=== PATIENT | male | born 1955 | race Caucasian/White ===

== ENCOUNTER 2019-05-30 06:36 | Inpatient (IN) ==
--- NOTE | 2019-05-29 19:31 | EKG Report ---
Test Performed on : 05/29/2019 6:53:26 PM Test Reason : AMS Blood Pressure : / mmHG Vent. Rate : 058 BPM Atrial Rate : 058 BPM P-R Int : 000 ms QRS Dur : 084 ms QT Int : 522 ms P-R-T Axes : 000 037 026 degrees QTc Int : 512 ms Junctional rhythm. Low voltage QRS Nonspecific ST abnormality Abnormal ECG When compared with ECG of 22-DEC-2008 09:27, Significant changes have occurred Unconfirmed Result
[2019-05-29 19:45] LABS: HEMATOCRIT 37.6 % (42.0-52.0); HEMOGLOBIN 12.7 g/dL (14.0-18.0); LYMPH# 0.27 X1000 (1.2-3.4); LYMPH% 7.4 % (20.5-51.1); MCH 27.4 PG (27-31); MCHC 33.8 g/dL (33-37); MCV 81.2 FL (81-99); MONO# 0.39 X1000 (0.11-0.59); MONO% 10.7 % (1.7-9.3); MPV 11.4 FL (7.4-10.4); NEUT# 2.99 X1000 (1.4-6.5); NEUT% 81.9 % (42.2-75.2); PLT 219 X1000 (130-400); RBC 4.63 XMIL (4.7-6.1); RDW 15.8 % (11.5-14.5); WBC 3.65 X1000 (4.8-10.8)
[2019-05-29 19:54] LABS: INR 1.35
[2019-05-29 19:55] LABS: PTT 34.4 Seconds (22.3-41.8)
[2019-05-29 20:10] LABS: ALBUMIN 3.1 g/dL (3.5-5.0); CALCIUM 8.5 mg/dL (8.8-10.2); CREATININE 2.3 mg/dL (0.7-1.2); MAGNESIUM 2.3 mg/dL (1.5-2.7); TOTAL BILIRUBIN 0.75 mg/dL (0.20-1.00); TOTAL PROTEIN 6.3 g/dL (6.3-8.3)
--- NOTE | 2019-05-29 20:26 | Diag Imaging Result Doc PS360 ---
CHEST-1 VIEW - 05/29/2019 INDICATION: SOB COMPARISON: None FINDINGS: There is cardiomegaly and pulmonary vascular congestion. There is central interstitial pulmonary edema bilaterally. No pneumothorax or large pleural effusion. IMPRESSION: Congestive heart failure. Electronically signed by Adalberto Flores 05/29/2019 8:24 PM
[2019-05-29 20:28] LABS: CK INDEX 6.5 (0.0-2.5); CK-MB 97.47 ng/mL (0.0-5.0)
--- NOTE | 2019-05-29 20:49 | Diag Imaging Result Doc PS360 ---
CT HEAD W/O CONTRAST - 05/29/2019 INDICATION: AMS COMPARISON: None FINDINGS: The ventricles and sulci are normal in size and contour. There is mild periventricular white matter chronic microvascular ischemia. No intracranial mass or hemorrhage. The skull is intact. The sinuses mastoids and middle ears are clear. IMPRESSION: No acute process. This exam was performed using automated exposure control, adjustment of mA or kV according to patient size, and/or use of iterative reconstruction technique Electronically signed by Adalberto Flores 05/29/2019 8:47 PM
--- NOTE | 2019-05-29 20:54 | Diag Imaging Result Doc PS360 ---
CT ABDOMEN/PELVIS W/O CONTRAST - 05/29/2019 INDICATION: FLANK PAIN COMPARISON: None FINDINGS: There are some hazy infiltrate in the lung bases. Heart size is borderline. There are cholecystectomy clips. Otherwise liver appears normal. No biliary dilation. There is probably some hazy edema around the pancreas. This may suggest pancreatitis. There is an IVC filter. The IVC is very small in size, likely chronically occluded. Ize, likely chronically occluded. And other collateral veins. No radiodense renal stones. No hydronephrosis or hydroureter. No bowel obstruction or inflammation. Urinary bladder and rectum are normal. There are advanced degenerative changes of the spine. No acute or suspicious bony lesion. IMPRESSION: 1. Possible pancreatitis. Please correlate clinically. 2. Patchy infiltrates in the lung bases compatible with atelectasis, pulmonary edema, or pneumonia. 3. 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 This exam was performed using automated exposure control, adjustment of mA or kV according to patient size, and/or use of iterative reconstruction technique Electronically signed by Adalberto Flores 05/29/2019 8:52 PM
[2019-05-29 21:25] LABS: ALLEN TEST YES; BE -12.1 mmoll (-3.0-3.0); BLOOD TYPE ARTERIAL; HCO3-(ACT) 15.4 mmoll (20.0-26.0); O2(CT) 16.9 mL/dL (15.0-23.0); O2HB 95.3 % (95.0-99.0); PCO2(98.6) 36 mmHg (35-45); PO2(98.6) 94 mmHg (60-100); SAMPLE BLOOD; SAO2 97.7 % (95.0-100.0); THB 12.5 g/dL (11.5-17.4); pH(98.6) 7.22 (7.35-7.45)
[2019-05-29 21:26] LABS: MODALITY CANNULA
[2019-05-29 22:12] LABS: AMYLASE 310 U/L (20-200); LIPASE 658 U/L (13-60)
--- NOTE | 2019-05-30 06:10 | HISTORY AND PHYSICAL ---
PRIMARY CARE PHYSICIAN: No known PCP. CHIEF COMPLAINT: Altered mental status. HISTORY OF PRESENTING COMPLAINT: The patient is a 78-year-old with unknown medical history, as the patient is new to our system, who presented with altered mental status. I could not get any history from the patient, as patient was alert but not oriented. History obtained from ER sign- out and from chart review. On chart review, the patient's family stated the patient fell last Saturday and went to the hospital and was discharged on Saturday. The patient has been sitting in a recliner since that time with his mental status worsening. They note that patient has been incontinent to both urine and bowel. The patient's family said they cannot really take care of the patient at home. They want him admitted to a [facility]. The patient is confused. Admits to drinking. Patient had a drink today and family not being able to take care of patient, just brought patient to the ER. In the ER, workup was done that showed multiple laboratory abnormalities and the hospitalist team was called to admit the patient. PAST MEDICAL HISTORY: None known. PAST SURGICAL HISTORY: None known. SOCIAL HISTORY: The patient report from family does take alcohol. FAMILY HISTORY: Could not be ascertained as the patient was altered and there was no family member at bedside to give a history. MEDICATIONS: Also could not be ascertained as patient did not have any medication list with him to ascertain any medication. REVIEW OF SYSTEM: Could not be ascertained as patient was altered and it could not be done given patient's altered mental status home. PHYSICAL EXAMINATION: VITALS: On presentation, blood pressure was 70/36, temperature was 95.5 Fahrenheit, pulse was 61, O2 saturation was 96%, but the time I saw the patient, the patient required 4 L of oxygen. GENERAL: He is a morbidly obese male in no acute respiratory distress on 4 L of oxygen. HEENT: Mildly dry oral mucosa. Not pale, anicteric, acyanoses. CARDIOVASCULAR: S1, S2 heard. No murmurs, rubs or gallop. RESPIRATORY: Fair air entry bilaterally. The patient has bibasilar crepitations heard. No wheeze. ABDOMEN: Obese, distended. The patient has erythematous discoloration over the abdomen extending above the umbilicus or to the perianal region, with multiple skin folds noted as well. Bowel sounds normoactive. No organomegaly could be appreciated. EXTREMITIES: Patient has 3+ bilateral pedal edema up to the knees with multiple skin folds noted. NEUROLOGY: Alert, not oriented to time, place, or person. No gross focal neurological abnormality noted. SKIN: The patient has erythematous discoloration over the anterior abdominal wall, as stated above. Also, with multiple skin folds and discoloration in between skin folds noted on the abdomen, the thigh region, and even on the chest as well below the mammary glands. LABS: WBC was 3.65, hemoglobin 12.7, hematocrit 37.6, MCV 81.2, platelets 219,000. BMP: Sodium 139, potassium 4, chloride 101, bicarb 14, anion gap 24, BUN 96, creatinine 2.3. Total bilirubin is 0.05, magnesium 2.3, AST 132, ALT 61, creatine kinase is 1495, CK-MB at 10.471, troponin T of 33, albumin 3.1, total protein 6.3, lipase 658, amylase 310, lactate was 0.5. INR is 1.35. A blood gas that was done shows a pH of 7.2, pCO2 of 36. A head CT done shows no acute intracranial process. Chest x-ray shows congestive heart failure with cardiomegaly and pulmonary vascular congestion. Central interstitial pulmonary edema bilaterally. A CT of the abdomen and pelvis shows possible pancreatitis, please correlate. Patchy infiltrates in the lung bases compatible with atelectasis, pulmonary edema or pneumonia. 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 EKG shows junctional rhythm with possible left atrial enlargement and no significant ST, T changes noted. DISCUSSION AND DECISION-MAKING: A 78-year-old with no known previous past medical history, no known previous home medication, who was brought to the ER by family because they could not take care of him. Patient recently discharged from hospital after a recent fall. The patient's mentation is worsening and family could not take care of patient and brought patient to the emergency room. In the emergency room, patient was noted to have desaturated, now requiring 4 L of oxygen. He had chest x-ray concerning for cardiomegaly and pulmonary edema. The patient is morbidly obese with multiple skin folds and erythematous discoloration, especially over the anterior abdominal wall. DIAGNOSES: 1. Congestive heart failure exacerbation, unknown type. He has no previous 2D echo known. . 2. Acute kidney injury, possibly cardiorenal. 3. High anion gap metabolic acidosis, possibly related to uremia and alcohol intake. 4. Hypotension from worsening congestive heart failure. 5. Acute encephalopathy, also likely from worsening congestive heart failure. 6. Possible pancreatitis. 7. Elevated troponin, rule out acute coronary syndrome 8. Morbid obesity 9. Anterior abdominal wall cellulitis PLAN: 1.Congestive heart failure exacerbation, no previous known 2D echo on file, but given the patient's chest x-ray is concerning for cardiomegaly and pulmonary vascular congestion, would do a proBNP to give an idea of cardiac fluid overload status. The patient is hypotensive and also diuresis is a little bit tricky. As such, we will start patient on Levophed drip and would diurese with IV Lasix 60 mg q.12 hours. Fluid restriction 1800 m. Daily weights, strict in's and out's. We will trend troponin q.6 hours x2 with EKG to rule out any acute coronary syndrome cause of heart failure. Will do a 2D echo as well to ascertain cardiac status of patient. No previous 2D echo on file, so I do not know the patient's cardiac status. 2. Troponinemia, most likely related to heart failure, may be demand ischemia. We will trend troponin q.6 hours x2 and EKG q.6 hours times x2. The patient is altered and so we are not aware if the patient is having chest pain at this time. We will monitor closely. 3. STEPHANIE, this may be cardiorenal in nature. Expect improved renal function with diuresis. We will monitor closely. 4. High anion gap metabolic acidosis. The patient has high anion gap metabolic acidosis of 24. Lactic acid is normal. Ethyl alcohol is normal. Family endorses the patient had alcohol today. We will check a blood alcohol level. Suspect this may be the cause. Also, uremia as well given worsening STEPHANIE from cardiorenal cause. Also, may be responsible for the high anion gap metabolic acidosis. Expect metabolic acidosis to improve as uremia improves with diureses; also, as alcohol is metabolized as well. The patient does not have lactic acidosis and, as such, unlikely to be the cause of metabolic acidosis. 5. Hypotension - likely due to worsening congestive heart failure, as patient is not able to have adequate cardiac contraction to maintain perfusion. Start patient on IV vasopressors, Levophed, to help improve cardiac function and this will also help with diuresis as well as for CHF. Would gradually titrate off as afterload is reduced and heart is able to contract adequately. We will need to adjust patient's home medications depending on results of 2D echo. 6. Acute encephalopathy. Family states the patient's mentation has been worsening and decided to bring patient to the ER. We expect improvement in mentation with treatment for heart failure and other possibly infectious process the patient may have. 6. Anterior abdominal wall cellulitis. The patient has severe, very large anterior abdominal erythema extending around the umbilicus area down to the perineum. Suspect patient's morbid obesity may be complicating this as well. No raised infectious markers, as WBC is normal, lactic acid is normal. We will check a CRP. I will start the patient on IV vancomycin, renally dosed, to treat cellulitis and would monitor closely. 7. Multiple skin folds with fungal infections. Will start the patient on miconazole topical to apply to the skin folds to help with fungal infection, likely Candidiasis the patient is having. 8. Possible pancreatitis. CT images suggest pancreatitis and lipase is marginally elevated. For now, the patient needs to be diuresing and that will be needed rather than any IV fluid hydration. Also, patient is not having any epigastric pain, as such pancreatitis diagnosis is suspect. Suspect we will revisit pancreatitis diagnosis when patient's mentation has improved and the patient is tolerating orally adequately. 9. DVT prophylaxis. Heparin. 10. Code status: Cannot ascertain as the patient is altered. 11. Disposition: We will admit the patient to the ICU. The patient will need at least 2 days of inpatient hospital admission and will discharge when medically stable. [facility]
[2019-05-30] MEDS ORDERED: SALINE LOCK IV FLUID XX ONE (10:03)
[2019-05-30] MEDS ORDERED: VANCOMYCIN IV PER PHARMACY MISC SCH (10:15)
[2019-05-30 11:18] LABS: ALLEN TEST YES; BE -13.6 mmoll (-3.0-3.0); BLOOD TYPE ARTERIAL; HCO3-(ACT) 14.2 mmoll (20.0-26.0); METHB 1.3 % (0.0-1.5); O2(CT) 21.5 mL/dL (15.0-23.0); O2HB 93.1 % (95.0-99.0); PCO2(98.6) 31 mmHg (35-45); PO2(98.6) 78 mmHg (60-100); SAMPLE BLOOD; SAO2 95.5 % (95.0-100.0); THB 16.4 g/dL (11.5-17.4); pH(98.6) 7.22 (7.35-7.45)
[2019-05-30 11:19] LABS: MODALITY CANNULA
[2019-05-30 11:25] LABS: BASO# 0.02 X1000 (0.0-0.2); BASO% 0.3 % (0.0-0.8); EOS# 0.02 X1000 (0.0-0.7); EOS% 0.3 % (0.0-10.0); HEMATOCRIT 39.7 % (42.0-52.0); HEMOGLOBIN 13.1 g/dL (14.0-18.0); IMM GRAN# 0.04 X1000 (0.0-0.04); IMM GRAN% 0.6 % (0.0-0.5); LYMPH# 0.47 X1000 (1.2-3.4); LYMPH% 7.5 % (20.5-51.1); MCH 27.3 PG (27-31); MCV 82.7 FL (81-99); MONO# 0.67 X1000 (0.11-0.59); MONO% 10.7 % (1.7-9.3); MPV 11.1 FL (7.4-10.4); NEUT# 5.04 X1000 (1.4-6.5); NEUT% 80.6 % (42.2-75.2); PLT 272 X1000 (130-400); RDW 16.7 % (11.5-14.5); WBC 6.26 X1000 (4.8-10.8)
[2019-05-30 11:50] LABS: ACETONE SERUM NEGATIVE (NEGATIVE)
--- NOTE | 2019-05-30 11:56 | CONSULTATION ---
DATE OF CONSULTATION: 05/30/2019 ATTENDING AND REFERRING PHYSICIAN: Hospitalist. CHIEF COMPLAINT: Morbid obesity and mental status changes. HISTORY OF PRESENT ILLNESS: This 63-year-old male was admitted with a several day history of increasing confusion. The patient is somewhat alert at present but still does not answer questions completely. He appears confused. He has morbid obesity and a Monk catheter is needed to monitor urine output. Reviewing the chart, he was admitted to [facility] in 2012. At that time, he was noted to have had prostate cancer status post radical retropubic prostatectomy in 1995 (age 40). He also had significant lower abdominal and inguinal area cellulitis. PAST MEDICAL HISTORY: Diabetes hypertension, morbid obesity, history of DVT, congestive heart failure. CURRENT MEDICATIONS: Documented on the chart. PAST SURGICAL HISTORY: Radical retropubic prostatectomy, cholecystectomy, IVC filter placement, hernia repair as a child. SOCIAL HISTORY: Alcohol use. He denies tobacco use. REVIEW OF SYSTEMS: Does not know if he is allergic to anything. He has a history of condyloma. He denies any chest pains. He did have a fall approximately 1 week ago but states he really does not remember that. PHYSICAL EXAMINATION: General: A morbidly obese, age apparent, white male, who is cooperative. HEENT: Normal for age. Lungs: With scattered rhonchi throughout. Cardiovascular: Regular rate and rhythm. Distant S1-S2. Abdomen: Markedly obese. There is a very large pannus. There does appear to be a significant amount of condyloma. There is increased erythema consistent with a cellulitis in the inner thighs, inguinal areas and underneath the large pannus. The scrotum is markedly edematous. The examiner's finger found the opening to the foreskin, and it was approximately 7 inches back to where the glans penis was palpated. When pressure was placed to expose the urethral meatus, the patient had significant pain. The left testis is palpable. The right testis is not palpable. Extremities: Markedly obese, +3 edema. Neurologic: No focal deficits. He does move his extremities. LABORATORY EVALUATION: Has a white count of 6.26, hemoglobin 13.1, hematocrit 39.7 and platelets are 272,000. His serum electrolytes yesterday had a bicarb of 14, a BUN of 96, creatinine of 2.3. His CT of the abdomen revealed possible pancreatitis but no hydronephrosis. IMPRESSION: Patient with morbid obesity and lower abdominal and inguinal area cellulitis with a very significant pannus and condyloma. PLAN: Attempt placement of Monk catheter under IV sedation to minimize his discomfort and allow his cooperation. The planned procedure, benefits versus risks, possible complications, were discussed with the patient. He may have understood but desires to proceed. cc: Seth Rajan MD
[2019-05-30 11:58] LABS: ALB/GLOB RATIO 0.5; ALBUMIN 2.3 g/dL (3.5-5.0); CALCIUM 8.1 mg/dL (8.8-10.2); CREATININE 2.4 mg/dL (0.7-1.2); TOTAL BILIRUBIN 0.63 mg/dL (0.20-1.00); TOTAL PROTEIN 7.1 g/dL (6.3-8.3)
[2019-05-30] MEDS: ZOFRAN IV PRN (12:00)
[2019-05-30 12:19] LABS: LIPASE 1006 U/L (13-60)
[2019-05-30] MEDS ORDERED: KETAMINE ONE (12:20)
[2019-05-30] MEDS ORDERED: VERSED ONE (12:20)
[2019-05-30 12:42] LABS: CK INDEX 3.8 (0.0-2.5); CK-MB 159.2 ng/mL (0.0-5.0)
[2019-05-30] MEDS ORDERED: HEPARIN SUBQ SCH (13:00)
--- NOTE | 2019-05-30 13:36 | OPERATIVE NOTE ---
PROCEDURE DATE: 05/30/2019 SURGEON: Seth Rajan MD. PREOPERATIVE DIAGNOSIS: Morbid obesity with urinary incontinence and a hidden penis. POSTOPERATIVE DIAGNOSIS: Morbid obesity with urinary incontinence and a hidden penis. PROCEDURE PERFORMED: Cystoscopic exam with difficult Monk catheterization. ANESTHESIA: Monitored anesthesia care. FINDINGS: The patient had a very large pannus with significant bilateral inguinal area, proximal thigh and lower abdominal cellulitis with a large amount of condyloma on the lower portion of the pannus and scrotum. The urethral meatus was approximately 10 to 12 cm proximal to the opening of the foreskin on the pannus. Attempts were made to push the surrounding tissue back to the glans penis without success. Cystoscopic exam. Urethra was greater than 21 -Belarusian without stricture. Prostate with normal verumontanum and mildly increased lateral lobes. Lenth about 4 cm. Elevated bladder neck. Bladder. Normal ureteral orifices bilaterally,mild trebeculations and no papillary lesions noted. Description of procedure: The patient was prepped and draped sterilely and a 21-Belarusian sheath cystoscope was passed through the foreskin back to the glans penis. The cystoscope was able to be pushed through the urethral meatus, then through the urethra, prostate and up into the bladder with findings as noted above. A 0.038 inch Leonardo-coated guidewire was passed through the cystoscope and coiled into the bladder under direct vision. The cystoscope was removed leaving the wire in place. The end of a 20-Belarusian silicone Monk catheter was removed with a catheter cutter and the 20-Belarusian silicone Monk was passed over the wire through the patient's urethra, prostate, and into the bladder. The wire was removed and 10 mL of sterile water were placed in the Monk's balloon. The Monk was placed to gravity drain. The efflux was straw colored urine. A portion of this was sent to Pathology for culture and sensitivities. He tolerated this procedure well and was returned to the intensive care unit in good condition. EBL. 0 ml. cc: Seth Rajan MD [facility]
[2019-05-30 13:39] LABS: URINE SOURCE CATH
[2019-05-30 13:46] LABS: BILIRUBIN URINE NEGATIVE (NEGATIVE); BLOOD URINE LARGE (NEGATIVE); COLOR YELLOW; GLUCOSE URINE NEGATIVE (NEGATIVE); KETONE URINE NEGATIVE (NEGATIVE); LEUKOCYTES URINE NEGATIVE (NEGATIVE); NITRITE URINE NEGATIVE (NEGATIVE); PROTEIN URINE TRACE mg/dL (NEGATIVE); SP GRAVITY URINE 1.007; TURBIDITY URINE HAZY (CLEAR); UROBILINOGEN URINE NORMAL (NORMAL)
[2019-05-30 13:47] LABS: UR EPITHELIAL CELLS <10 /HPF (<10); URINE BACTERIA NEGATIVE /HPF; URINE RBC TNTC /HPF (<10); URINE WBC <10 /HPF (<10)
[2019-05-30] MEDS: HUMULIN R SUBQ SCH ×3 (13:53→21:48)
[2019-05-30] MEDS: LOVENOX SUBQ SCH (13:53)
[2019-05-30] MEDS: MERREM 500 MG in NS 50 ML IV SCH ×2 (13:53→20:00)
[2019-05-30] MEDS: ZYVOX 600 MG/D5W 600 MG/300 ML IVPB IV SCH ×2 (13:53→22:06)
[2019-05-30] MEDS: LEVOPHED 8 MG in D5 1/2 NS 250 ML IV SCH (13:54)
[2019-05-30 13:59] LABS: UR CREAT RANDOM 15.4 mg/dL (14-26); UR PROT RANDOM 13.6 mg/dL
[2019-05-30] MEDS ORDERED: NS 1,000 ML IV SCH (14:15)
--- NOTE | 2019-05-30 14:29 | CARDIOLOGY CONSULTATION ---
DATE: 05/30/2019 CHIEF COMPLAINT ON PRESENTATION: Altered mental status. HISTORY OF PRESENT ILLNESS: Limited history available from the patient. He was just brought back from the operating room for a sedation-assisted Monk catheter placement. Patient was brought in yesterday by family with altered mental status and inability to take care of him. He is not able to provide much history but it seems like he is quite confused. Admits to alcohol intake daily and possibly the patient has been experiencing falls as well as prolonged time periods of sitting in a recliner. He is still quite confused from sedation. He has no acute complaints. PAST MEDICAL HISTORY: Essentially unknown as we have very limited available reports. We have a report from 2012 when he was admitted reporting that he had a prostatectomy as well as a cholecystectomy. He is a morbidly obese patient. FAMILY HISTORY, SOCIAL HISTORY, REVIEW OF SYSTEMS: All unable to be obtained secondary to lack of history and the patient's confusion. PHYSICAL EXAMINATION: He is afebrile. His presenting temperature was 85.5, his most recent temperature was 96.General: He is a disheveled white male in no acute distress. Currently on supplemental O2. HEENT: Oropharynx is moist. Poor dentition. Mangum conjunctivae. White sclerae. Neck: Shows no obvious thyromegaly or thyroid tenderness. Cardiovascular: He is in a regular rate and rhythm. He has no obvious murmurs. He has no S3. He has no lower extremity edema. Chest: Sounds relatively clear but he has poor inspiratory effort. He has no increased work of breathing. Abdomen: Soft, nontender, nondistended. Skin: Shows multiple areas of cellulitis in the pannus on his bilateral abdomen. Neurological: He is moving all extremities well. He is not able to cooperate with the examination. PERTINENT DATA: His abdominal CT demonstrates possible pancreatitis, patchy infiltrates in the lung bases compatible with possible atelectasis, pulmonary edema or pneumonia. Probable occlusion of the IVC with previous IVC filter placement. He had an electrocardiogram performed on the . This demonstrated sinus rhythm. LABORATORY DATA: Presenting white count was 3.6, hematocrit 39.7, platelet count 272,000. ABG shows a pH 7.22, pCO2 of 31, PO2 of 78. His lactate is 1.3. His sodium is 138, potassium 4, his BUN is 92, creatinine is 2.4. His proBNP is 2623, his AST and ALT are 189 and 71 respectively, his CK is 4140, this is increased from 1495. His initial troponin was 33, subsequent has trended up to 55, his MB fractions are 97 and subsequently 159, his index was 6.5 and subsequently reduced to 3.8. His CRP is 184. His lipase initially was 658 and subsequently was 1006 with an elevated amylase as well. Serum alcohol was negative. Acetone level negative. ASSESSMENT: Mr. Trevino is a 63-year-old gentleman who presented with altered mental status. PLAN: He has multiple lab abnormalities suggesting acute renal failure as well as possible pancreatitis. His CRP is markedly elevated. His troponin elevation is likely not secondary to acute coronary syndrome based on his lack of complaints of chest pain as well as a normal EKG. I believe his proBNP elevation can be explained by sepsis as well as acute kidney injury in the likelihood that the patient has sleep apnea as well that is untreated. Presently, we will order an echocardiogram for tomorrow. Presently, I do not have any acute cardiovascular recommendations. I discussed case with the primary treating physician and I believe a trial of light fluids would be reasonable. Currently he is on Lasix 60 IV b.i.d. Again, I would not treat this as acute heart failure. cc: Viriglio Ríos MD
[2019-05-30] MEDS: DUONEB (A & A) INH SCH ×4 (14:58→23:26)
[2019-05-30] MEDS ORDERED: LASIX IV SCH (15:00)
[2019-05-30] MEDS ORDERED: SODIUM BICARBONATE 8.4% 150 MEQ in D5W 1,000 ML IV SCH (16:45)
[2019-05-30] MEDS ORDERED: NS 0 ML ONE (17:02)
[2019-05-30] MEDS: SODIUM BICARBONATE 8.4% 150 MEQ in D5W 1,000 ML IV SCH (17:15)
[2019-05-30 19:07] LABS: ALBUMIN 2.3 g/dL (3.5-5.0); CALCIUM 7.9 mg/dL (8.8-10.2); CREATININE 2.2 mg/dL (0.7-1.2); PHOSPHORUS 5.8 mg/dL (2.7-4.5); POTASSIUM 4.2 mmol/L (3.5-5.1)
[2019-05-30 19:38] LABS: CK INDEX 3.9 (0.0-2.5); CK-MB 142.1 ng/mL (0.0-5.0)
--- NOTE | 2019-05-30 19:54 | Diag Imaging Result Doc PS360 ---
US SCROTUM - 05/30/2019 INDICATION: swelling TECHNIQUE: COMPARISON: CT from 05/29/2019 FINDINGS: The exam is extremely, extremely challenging due to the patient's large size. The testes are grossly normal in echotexture with normal blood flow. No mass or fluid collection. IMPRESSION: Negative exam. Electronically signed by Adalberto Flores 05/30/2019 7:51 PM
--- NOTE | 2019-05-30 20:01 | EKG Report ---
Test Performed on : 05/30/2019 5:39:25 PM Test Reason : EKG Blood Pressure : / mmHG Vent. Rate : 076 BPM Atrial Rate : 076 BPM P-R Int : 188 ms QRS Dur : 106 ms QT Int : 466 ms P-R-T Axes : 052 015 113 degrees QTc Int : 524 ms Normal sinus rhythm. T wave abnormality, consider lateral ischemia Prolonged QT Abnormal ECG When compared with ECG of 11-MAY-2012 08:35, T wave inversion now evident in Lateral leads QT has lengthened Confirmed by Miguel FRAGA, mOi Barba ([id number]) on 06/02/2019 9:39:30 AM
[2019-05-30] MEDS: BAZA ANTIFUNGAL CREAM TOP SCH (21:44)
[2019-05-31] MEDS: LEVOPHED 8 MG in D5 1/2 NS 250 ML IV SCH ×2 (00:30→08:09)
[2019-05-31] MEDS: MERREM 500 MG in NS 50 ML IV SCH ×3 (02:44→17:33)
[2019-05-31 05:05] LABS: ALLEN TEST YES; BE -7.7 mmoll (-3.0-3.0); BLOOD TYPE ARTERIAL; HCO3-(ACT) 18.9 mmoll (20.0-26.0); METHB 1.4 % (0.0-1.5); O2(CT) 17.9 mL/dL (15.0-23.0); O2HB 96.5 % (95.0-99.0); PCO2(98.6) 34 mmHg (35-45); PO2(98.6) 156 mmHg (60-100); SAMPLE BLOOD; SAO2 98.9 % (95.0-100.0); pH(98.6) 7.32 (7.35-7.45)
[2019-05-31 05:06] LABS: MODALITY VENTIMASK
[2019-05-31 05:20] LABS: EOS# 0.02 X1000 (0.0-0.7); EOS% 0.3 % (0.0-10.0); HEMATOCRIT 36.5 % (42.0-52.0); HEMOGLOBIN 12.1 g/dL (14.0-18.0); IMM GRAN# 0.03 X1000 (0.0-0.04); IMM GRAN% 0.5 % (0.0-0.5); LYMPH# 0.73 X1000 (1.2-3.4); LYMPH% 11.6 % (20.5-51.1); MCH 27.4 PG (27-31); MCHC 33.2 g/dL (33-37); MCV 82.8 FL (81-99); MONO% 9.5 % (1.7-9.3); MPV 11.5 FL (7.4-10.4); NEUT# 4.94 X1000 (1.4-6.5); NEUT% 78.1 % (42.2-75.2); PLT 266 X1000 (130-400); RBC 4.41 XMIL (4.7-6.1); RDW 16.8 % (11.5-14.5); WBC 6.32 X1000 (4.8-10.8)
[2019-05-31 05:42] LABS: ALB/GLOB RATIO 0.7; ALBUMIN 2.6 g/dL (3.5-5.0); CALCIUM 7.8 mg/dL (8.8-10.2); CREATININE 2.2 mg/dL (0.7-1.2); MAGNESIUM 1.8 mg/dL (1.5-2.7); POTASSIUM 3.7 mmol/L (3.5-5.1); TOTAL BILIRUBIN 0.56 mg/dL (0.20-1.00); TOTAL PROTEIN 6.5 g/dL (6.3-8.3)
[2019-05-31 05:44] LABS: HEMOGLOBIN A1C 6.2 % (4.8-6.0)
[2019-05-31] MEDS: HUMULIN R SUBQ SCH ×4 (06:08→21:40)
[2019-05-31] MEDS: PROTONIX IV SCH (06:11)
[2019-05-31 06:13] LABS: CK-MB 103.3 ng/mL (0.0-5.0)
[2019-05-31] MEDS: SODIUM BICARBONATE 8.4% 150 MEQ in D5W 1,000 ML IV SCH ×2 (07:50→23:26)
[2019-05-31] MEDS: DUONEB (A & A) INH SCH ×5 (08:38→23:22)
[2019-05-31] MEDS: MIRALAX PO SCH ×2 (08:45→20:53)
[2019-05-31] MEDS: BAZA ANTIFUNGAL CREAM TOP SCH ×2 (08:45→20:53)
[2019-05-31] MEDS: VITAMIN D PO SCH (08:45)
[2019-05-31] MEDS: ZYVOX 600 MG/D5W 600 MG/300 ML IVPB IV SCH ×2 (09:32→23:25)
[2019-05-31] MEDS: LOVENOX SUBQ SCH (09:32)
--- NOTE | 2019-05-31 10:01 | EKG Report ---
Test Performed on : 05/31/2019 09:34:44 AM Test Reason : chest pain Blood Pressure : / mmHG Vent. Rate : 091 BPM Atrial Rate : 091 BPM P-R Int : 174 ms QRS Dur : 098 ms QT Int : 430 ms P-R-T Axes : 044 010 023 degrees QTc Int : 528 ms Normal sinus rhythm. Nonspecific T wave abnormality Prolonged QT Abnormal ECG When compared with ECG of 30-MAY-2019 17:39, (Unconfirmed) Nonspecific T wave abnormality now evident in Inferior leads Nonspecific T wave abnormality, worse in Anterior leads T wave inversion no longer evident in Lateral leads Unconfirmed Result
--- NOTE | 2019-05-31 11:46 | CARDIOLOGY PROGRESS NOTE ---
DATE: 05/31/2019 SUBJECTIVE: Mr. Trevino seems a little bit more alert today. No complaints. PHYSICAL EXAMINATION: Vital signs: Afebrile. Heart rates in the 80s to 90s. Blood pressure 86/62. His I's and O's are slightly positive. Notably, he was on Lasix yesterday. General: Generally he is an ill-appearing, disheveled white male no acute distress. Cardiovascular: He is in a regular rate and rhythm. Currently telemetry tracing shows sinus rhythm. He has minimal lower extremity edema. Chest: Coarse breath sounds diffusely. No increased work of breathing. Expiratory wheezes noted throughout. Abdomen: Soft, nontender. He has a extremely large pannus that extends down close to the level of his knees. LABORATORY: White count 6.3, hematocrit 36, platelet count 266,000. His sodium is 135, potassium 3.7, BUN 85, creatinine 2.2 which is roughly stable from yesterday. His CK is down to 2590, index is roughly stable at 4. MB 103, which is improved. Troponin 44, which is roughly stable. ProBNP 4204, slightly increased. TSH 0.12. ASSESSMENT: Mr. Trevino is a 63-year-old gentleman who presented with altered mental status. PLAN: Again, laboratories on presentation demonstrated acute renal failure, markedly elevated lipase as well as a markedly elevated CRP. His EKGs have not been consistent with acute coronary syndrome. His echocardiogram is pending. I would continue with light hydration which currently is being accomplished with sodium bicarb at 75 mL/hour. He is currently on antibiotics. He certainly seems septic and he has multiple skin wounds on a very prominent pannus that could account for that. He had a head CT, and chest CT that are pending. cc: Virgilio Ríos MD [facility] SYSTEM[facility]a
--- NOTE | 2019-05-31 15:09 | Diag Imaging Result Doc PS360 ---
CT HEAD W/O CONTRAST - 05/31/2019 INDICATION: encephalopathy COMPARISON: 05/29/2019 FINDINGS: There is no acute disease or change from prior. IMPRESSION: No acute disease or change from prior. This exam was performed using automated exposure control, adjustment of mA or kV according to patient size, and/or use of iterative reconstruction technique Electronically signed by Adalberto Flores 05/31/2019 3:07 PM
--- NOTE | 2019-05-31 15:15 | Diag Imaging Result Doc PS360 ---
CT THORAX W/O CONTRAST - 05/31/2019 INDICATION: pneumonia COMPARISON: Chest x-ray 05/29/2019 FINDINGS: Lung volumes are severely low. There is some mild nonspecific atelectasis bilaterally. There is no adenopathy. Heart and great vessels are normal. Bones are intact. IMPRESSION: Severely low lung volumes with bibasilar atelectasis. This suggests obesity hypoventilation. This exam was performed using automated exposure control, adjustment of mA or kV according to patient size, and/or use of iterative reconstruction technique Electronically signed by Adalberto Flores 05/31/2019 3:13 PM
--- NOTE | 2019-05-31 18:19 | PROGRESS NOTE ---
DATE: 05/31/2019 SUBJECTIVE: The patient is resting comfortably in bed. He is on a Levophed drip. No acute events noted overnight. OBJECTIVE: Vital Signs: Temperature 97 degrees, blood pressure 86/62, heart rate 90, respirations 19, O2 saturation 96% on a Venturi mask. Intake 2.1 L, output 2 L. General: This is a morbidly obese male lying in bed in no acute distress. HEENT: Normocephalic, atraumatic. Oral mucosa is moist. Trachea is midline. Heart: S1, S2 normal. Regular rate and rhythm. Lungs: Coarse breath sounds bilaterally. Abdomen: Positive bowel sounds. There is erythema over the pannus. It is warm to touch. Mild tenderness to palpation. Extremities: 2+ edema with erythema involving the upper thighs . : The scrotum is severely edematous and erythematous. Neurologic: The patient is alert and oriented x3. He is able to move all 4 extremities. LABS: White blood cell count 6.3, hemoglobin 12, hematocrit 36, platelets 266,000. Sodium 135, potassium 3.7, chloride 100, CO2 19, BUN 85, creatinine 2.2, glucose 22, anion gap of 16. ABG, pH of 7.32, pCO2 34, PO2 156, bicarb 18, phosphorus 5, magnesium 1.8. AST 144, ALT 64, CK 2590. Abdomen wound culture is showing grown gram-negative rods. Head CT: No acute disease. Chest CT reveals basilar atelectasis and obesity related hypoventilation. ASSESSMENT AND PLAN: 1. Acute hypoxemic respiratory failure. Multifactorial. Continue with supplemental oxygen and bronchodilator therapy. 2. Septic shock. The patient has a panniculitis as well as cellulitis involving the legs. We will continue with broad-spectrum antibiotics. The wound culture from the abdomen is growing gram-negative rods. Continue with broad-spectrum antibiotics. 3. Acute kidney injury. The fractional excretion of urea is 23.5%. The patient's renal failure is likely multifactorial. Likely a combination of sepsis and rhabdomyolysis leading to acute tubular necrosis. We will continue with IV fluids and consult with the physician gynecologist for further recommendations. We will avoid nephrotoxic agents. 4. Rhabdomyolysis. Continue on the bicarbonate drip. 5. Abdominal wall cellulitis. The wound culture is growing gram-negative rods. Continue on meropenem pending final culture results. 6. Bilateral lower extremity cellulitis. Continue with antibiotics. 7. History of inferior vena cava filter placement. Venous Dopplers of both legs have been ordered. The patient is on full-dose Lovenox. 8. Morbid obesity with hypoventilation. Aware. 9. High anion gap metabolic acidosis. The patient is currently on a bicarbonate drip and this appears to be improving slowly. 10. Diabetes mellitus type 2. Continue on sliding scale insulin. 11. Constipation. Continue with laxative therapy. 12. Gastrointestinal prophylaxis. Continue on Protonix. 13. DVT prophylaxis. Continue on lovenox. 14. Disposition. The patient is critically ill. cc: Shanice Villarreal MD MTDMya
[2019-05-31] MEDS: CULTURELLE PO SCH (20:53)
--- NOTE | 2019-05-31 23:40 | EKG Report ---
Test Performed on : 05/31/2019 5:17:10 PM Test Reason : EKG Blood Pressure : / mmHG Vent. Rate : 095 BPM Atrial Rate : 095 BPM P-R Int : 178 ms QRS Dur : 098 ms QT Int : 394 ms P-R-T Axes : 047 009 017 degrees QTc Int : 495 ms Normal sinus rhythm. Nonspecific T wave abnormality Prolonged QT Abnormal ECG When compared with ECG of 31-MAY-2019 09:34, (Unconfirmed) No significant change was found Unconfirmed Result
[2019-06-01] MEDS: MERREM 500 MG in NS 50 ML IV SCH (05:03)
[2019-06-01 05:07] LABS: ALLEN TEST YES; BE -0.5 mmoll (-3.0-3.0); BLOOD TYPE ARTERIAL; HCO3-(ACT) 24.5 mmoll (20.0-26.0); O2(CT) 15.9 mL/dL (15.0-23.0); PCO2(98.6) 43 mmHg (35-45); PO2(98.6) 160 mmHg (60-100); SAMPLE BLOOD; SAO2 99.3 % (95.0-100.0); THB 11.4 g/dL (11.5-17.4); pH(98.6) 7.37 (7.35-7.45)
[2019-06-01 05:08] LABS: MODALITY CANNULA
[2019-06-01 05:52] LABS: EOS# 0.05 X1000 (0.0-0.7); EOS% 1.2 % (0.0-10.0); HEMATOCRIT 32.8 % (42.0-52.0); HEMOGLOBIN 10.6 g/dL (14.0-18.0); LYMPH# 0.89 X1000 (1.2-3.4); LYMPH% 20.5 % (20.5-51.1); MCH 27.2 PG (27-31); MCHC 32.3 g/dL (33-37); MCV 84.3 FL (81-99); MONO% 13.8 % (1.7-9.3); MPV 11.3 FL (7.4-10.4); NEUT% 64.5 % (42.2-75.2); PLT 187 X1000 (130-400); RBC 3.89 XMIL (4.7-6.1); RDW 16.8 % (11.5-14.5); WBC 4.34 X1000 (4.8-10.8)
[2019-06-01 06:12] LABS: ALB/GLOB RATIO 0.5; ALBUMIN 2.2 g/dL (3.5-5.0); CALCIUM 7.1 mg/dL (8.8-10.2); CREATININE 2.5 mg/dL (0.7-1.2); DIRECT BILIRUBIN 0.2 mg/dL (0.00-0.20); PHOSPHORUS 4.4 mg/dL (2.7-4.5); POTASSIUM 4.2 mmol/L (3.5-5.1); TOTAL BILIRUBIN 0.4 mg/dL (0.20-1.00); TOTAL PROTEIN 6.4 g/dL (6.3-8.3)
[2019-06-01] MEDS: SODIUM CHLORIDE 0.9% INJ SCH (06:44)
[2019-06-01] MEDS: PROTONIX IV SCH (06:44)
[2019-06-01] MEDS: HUMULIN R SUBQ SCH ×4 (06:52→21:19)
--- NOTE | 2019-06-01 07:16 | Diag Imaging Result Doc PS360 ---
EXAM: CHEST-PORTABLE 06/01/2019 HISTORY: dyspnea TECHNIQUE: AP portable at 0600 COMMENT: There is cardiomegaly and increased pulmonary vascularity. There are platelike opacities in the right base which were not present on 05/29/2019. The inspiration is less optimal. There is also subsegmental atelectasis in the retrocardiac left lower lobe. IMPRESSION: Bibasilar atelectasis. Cardiomegaly. The possibility of mild pulmonary edema cannot be excluded. Electronically signed by Jose Vanegas 06/01/2019 7:14 AM
[2019-06-01] MEDS: COLACE PO SCH ×2 (08:53→20:22)
[2019-06-01] MEDS: CULTURELLE PO SCH ×2 (08:53→20:22)
[2019-06-01] MEDS: MIRALAX PO SCH ×2 (08:53→20:22)
[2019-06-01] MEDS: NS 1,000 ML IV SCH ×2 (09:00→21:51)
[2019-06-01] MEDS: BAZA ANTIFUNGAL CREAM TOP SCH ×2 (09:00→20:22)
[2019-06-01] MEDS: DUONEB (A & A) INH SCH ×5 (09:57→23:34)
[2019-06-01] MEDS: ZYVOX 600 MG/D5W 600 MG/300 ML IVPB IV SCH ×2 (11:00→21:51)
[2019-06-01] MEDS: LOVENOX SUBQ SCH (11:00)
--- NOTE | 2019-06-01 12:42 | CARDIOLOGY PROGRESS NOTE ---
DATE: 06/01/2019 SUBJECTIVE: Mr. Trevino has no complaints today. He has no pain complaints in his chest, abdomen, or legs. OBJECTIVE: Vital Signs: On physical exam, he is afebrile. His heart rates are in the 80s, blood pressure 93/57. He has had some systolics in the 70s to 90s. General: Morbidly obese, no acute distress. Cardiovascular: He is in a regular rate and rhythm. He has no obvious murmurs. He has warm and well perfused extremities with no edema. Chest: His chest exam is relatively clear, but he has a very poor inspiratory effort. Difficult examination secondary to his obesity. Abdomen: Soft, nontender. He has a very large pannus. DATA: White count 4.3, hematocrit 32, platelet count 187,000. His sodium is 139, potassium 4.2, BUN 89, creatinine 2.5. Yesterday his creatinine was 2.2. CK 1552, which is down from a peak of 4140. ASSESSMENT: Mr. Trevino is a 63-year-old gentleman who presented with sepsis likely secondary to skin infection. PLAN: His echocardiogram today shows a normal ejection fraction, suggestion of grade 2 diastolic dysfunction, pulmonary hypertension with a dilated right ventricle. He likely has untreated sleep apnea, possibly also COPD. His chest CT shows severely low lung volumes suggesting obesity hypoventilation. Head CT was unremarkable. At present, I do not have any acute cardiovascular recommendations. His telemetry strips were reviewed and demonstrated no significant arrhythmias. cc: Virgilio Ríos MD
--- NOTE | 2019-06-01 13:10 | ECHO REPORT ---
ORDER DATE: 06/01/2019 INTERPRETING PHYSICIAN: Dr. Benjamin Veronica. ECHOCARDIOGRAPHIC MEASUREMENTS: 1. Interventricular septum: 0.9 cm. 2. Left ventricular posterior wall: 0.9 cm. 3. Diastolic diameter: 5.7 cm. 4. Left atrium: 3.9 cm. 5. Aorta: 2.8 cm. SUMMARY OF THE 2-DIMENSIONAL IMAGIN. Normal left ventricular cavity size. Estimated ejection fraction of 60%. There is diastolic dysfunction grade 2. 2. Aortic valve leaflets were sclerosed, trileaflet. 3. Mitral valve was normal. 4. Tricuspid valve was normal. 5. Right ventricle was mildly dilated, D-shaped, interventricular septum suggestive of elevated right-sided pressures. 6. The peak velocity across the aortic valve was 2.5 m/sec with a mean gradient of 16 mmHg. There is aortic sclerosis. No aortic stenosis. 7. There is moderate to severe tricuspid regurgitation. Peak velocity across the tricuspid valve was 3.4 m/sec. 8. Pulmonary artery systolic pressure of 56 mmHg. There is pulmonary arterial hypertension. 9. There is mild mitral regurgitation. 10. There is no pericardial effusion. cc: Benjamin Veronica MD
--- NOTE | 2019-06-01 18:08 | PROGRESS NOTE ---
DATE: 06/01/2019 SUBJECTIVE: The patient is resting comfortably in bed. No acute events noted overnight. The patient is off of the Levophed drip. OBJECTIVE: Vital Signs: Temperature 98 degrees, blood pressure 104/55, heart rate 80, respirations 16, O2 saturation 96% on 6 L nasal cannula. Intake 3.4 L, output 9.85. General: This is a morbidly obese male lying in bed in no acute distress. Heart: S1, S2 normal. Regular rate and rhythm. Lungs: Coarse breath sounds bilaterally. Abdomen: Positive bowel sounds, soft. There is erythema involving the abdominal wall extending to the pannus. : The scrotum is severely edematous. Extremities: 2+edema with erythema involving both upper thighs. Neurologic: The patient is alert and oriented to person. LABS: White blood cell count 4.3, hemoglobin 10, hematocrit 32, platelets 187,000. Sodium 139, potassium 4.2, chloride 99, CO2 23. BUN 89, creatinine 2.5, glucose 148, calcium 7.1. Phosphorus 4.4, AST 105, ALT 51, CK 1552, cortisol 18.4. IMAGING: Chest x-ray: Bibasilar atelectasis, cardiomegaly, mild pulmonary edema. ASSESSMENT AND PLAN: 1. Acute hypoxemic respiratory failure. The x-ray is not showing any evidence of pneumonia. We will continue with supplemental oxygen and bronchodilator therapy. 2. Septic shock. The patient is off of the Levophed drip. The abdominal wound culture is growing Escherichia coli. Continue with antibiotic therapy. So far, the blood cultures remain negative. 3. Acute kidney injury on CKD. This is worse today. We will discontinue the bicarbonate drip and start the patient on normal saline. This is likely a combination of sepsis and rhabdomyolysis leading to acute tubular necrosis. Nephrology has been consulted for further recommendations. 4. Rhabdomyolysis. Slowly improving. Continue with IV fluids. 5. Abdominal wall cellulitis secondary to Escherichia coli. Continue with IV antibiotic therapy. 6. Bilateral lower extremity cellulitis. Continue with antibiotics. 7. History of inferior vena cava (IVC) filter placement. The patient refused to have a venous Doppler of his lower extremities done. 8. Morbid obesity with hypoventilation syndrome. Aware. 9. Anion gap metabolic acidosis. Improved. 10. Diabetes mellitus type 2. Continue on sliding scale insulin. 11. Constipation. Continue with laxative therapy. 12. Transaminitis. Will check a hepatitis profile. 13. Morbid obesity with suspected Pickwickian syndrome. The patient will need a sleep study as outpatient. 14. Acute pancreatitis. The patient denies abdominal pain or nausea. Continue with IVF and monitor closely. 15. Gastrointestinal prophylaxis. Continue on Protonix. 16. Deep vein thrombosis prophylaxis. The patient is on full-dose Lovenox. 17. Disposition. The patient remains critically ill. cc: Shanice Villarreal MD MTDD
--- NOTE | 2019-06-01 18:17 | NEPHROLOGY CONSULTATION ---
DATE: 06/01/2019 REASON FOR CONSULTATION: Abnormal kidney function. HISTORY OF PRESENT ILLNESS: Mr. Trevino is a 78-year-old man who was brought to the emergency room because his family could no longer care for him. He recently was hospitalized and after going home he had worsening mental state and difficulty with controlling bowels and bladder and ultimately again they could not care for him and so he was brought back to the emergency room. His initial evaluation in the emergency room found blood pressure of 115/65, but he rapidly dropped to 79/50. He has had intermittent hypotension going forward from that time and required vasopressor support in the form of Levophed. His blood pressure has remained unstable with blood pressures as low as 71/52 this morning. The patient opens his eyes and grunts but he does not answer any of my questions. He will look toward me but he does not follow any other commands. PAST MEDICAL HISTORY, MEDICATIONS, FAMILY AND SOCIAL HISTORY, AND REVIEW OF SYSTEMS: Otherwise not obtainable. PHYSICAL EXAMINATION: Vital Signs: Blood pressure 105/55, heart rate 80, respirations 16, afebrile. Generally: He is a morbidly obese, white male lying on his back. Mental status as above. HEENT: Conjunctivae are pink. Pupils are equal. Oropharynx is clear. Neck: Neck veins are not appreciated. Trachea is midline. Heart: PMI difficult to palpate. Regular rate and rhythm. No audible murmurs or rubs. Lungs: Have equal excursion. Decreased breath sounds markedly so. Difficult to hear any respiratory sounds, but no crackles. Abdomen: Obese, soft, nontender. Bowel sounds are diminished. He has intertriginous erythema and desquamation. IMPRESSION: Renal failure. Creatinine 2.5 today. Creatinine has been stable since admission. We do not have previous data. He certainly has had hypotension and Levophed, which would predispose him to acute kidney injury. But again, kidney function changes predate the addition of Levophed. CT did not demonstrate any evidence of obstruction. May well be chronic. Urine electrolytes with really minimal protein and urine FENa is not low. I have reviewed his medications. No changes are required at this time. We will follow with you. cc: Vaibhav Judd MD
[2019-06-01] MEDS: MERREM 1 GM in NS 50 ML IV SCH (18:22)
--- NOTE | 2019-06-01 18:34 | Diag Imaging Result Doc PS360 ---
EXAM: ABDOMEN FLAT/UPRIGHT 06/01/2019 HISTORY: constipation TECHNIQUE: Flat and upright abdomen portable COMMENT: There is a Cortez filter and multiple surgical clips in the right upper quadrant. There is some gas in the stomach. There is gas and some nondistended small bowel loops and the transverse colon as well as some gas in the rectosigmoid with fecal debris. There is no evidence of organomegaly or mass. IMPRESSION: Mild constipation otherwise nonspecific abdomen. Electronically signed by Jose Vanegas 06/01/2019 6:32 PM
[2019-06-01] MEDS: DULCOLAX PR SCH (20:22)
[2019-06-02] MEDS: MERREM 1 GM in NS 50 ML IV SCH (04:24)
[2019-06-02 04:35] LABS: BASO# 0.01 X1000 (0.0-0.2); BASO% 0.2 % (0.0-0.8); EOS# 0.05 X1000 (0.0-0.7); EOS% 1.2 % (0.0-10.0); HEMATOCRIT 32.3 % (42.0-52.0); HEMOGLOBIN 10.2 g/dL (14.0-18.0); IMM GRAN# 0.02 X1000 (0.0-0.04); IMM GRAN% 0.5 % (0.0-0.5); LYMPH# 0.86 X1000 (1.2-3.4); LYMPH% 21.4 % (20.5-51.1); MCH 27.1 PG (27-31); MCHC 31.6 g/dL (33-37); MCV 85.9 FL (81-99); MONO# 0.37 X1000 (0.11-0.59); MONO% 9.2 % (1.7-9.3); MPV 10.6 FL (7.4-10.4); NEUT% 67.5 % (42.2-75.2); PLT 173 X1000 (130-400); RBC 3.76 XMIL (4.7-6.1); RDW 16.9 % (11.5-14.5); WBC 4.01 X1000 (4.8-10.8)
[2019-06-02 04:50] LABS: ALLEN TEST YES; BE -0.3 mmoll (-3.0-3.0); BLOOD TYPE ARTERIAL; HCO3-(ACT) 24.7 mmoll (20.0-26.0); O2(CT) 11.4 mL/dL (15.0-23.0); O2HB 96.6 % (95.0-99.0); PCO2(98.6) 49 mmHg (35-45); PO2(98.6) 119 mmHg (60-100); SAMPLE BLOOD; SAO2 98.8 % (95.0-100.0); THB 8.2 g/dL (11.5-17.4); pH(98.6) 7.33 (7.35-7.45)
[2019-06-02 04:53] LABS: MODALITY CANNULA
[2019-06-02 05:01] LABS: ALBUMIN 2.3 g/dL (3.5-5.0); CALCIUM 7.1 mg/dL (8.8-10.2); CREATININE 1.9 mg/dL (0.7-1.2); PHOSPHORUS 4.5 mg/dL (2.7-4.5); POTASSIUM 4.4 mmol/L (3.5-5.1)
[2019-06-02] MEDS: PROTONIX IV SCH (06:19)
[2019-06-02] MEDS: HUMULIN R SUBQ SCH ×4 (06:19→20:37)
[2019-06-02] MEDS: SODIUM CHLORIDE 0.9% INJ SCH (06:19)
--- NOTE | 2019-06-02 07:22 | Diag Imaging Result Doc PS360 ---
CHEST-PORTABLE - 06/02/2019 INDICATION: dyspnea COMPARISON: 06/01/2019 FINDINGS: Stable low lung volumes. Stable cardiomegaly and pulmonary vascular congestion. There has been improvement in the central hazy interstitial pulmonary edema. There is also been improvement in the patchy atelectasis in both lung bases. IMPRESSION: Improvement from prior. Electronically signed by Adalberto Flores 06/02/2019 7:20 AM
[2019-06-02] MEDS: KEFZOL 1 GM/D5W 1 GM/50 ML IVPB IV SCH ×2 (08:00→16:35)
[2019-06-02] MEDS: DUONEB (A & A) INH SCH ×4 (08:12→20:01)
--- NOTE | 2019-06-02 08:22 | PROGRESS NOTE ---
DATE: 06/02/2019 INTERVAL HISTORY: His hypothermia has been improving and his temperature has been 97.2. He did not have any other acute overnight events except a few episodes of hypotension, though his mean arterial pressure mostly has been within acceptable range. SUBJECTIVE: Mr. Trevino is awake, alert. He answers simple question. He denies any chest pain. He is feeling short of breath, but he is feeling better, however, his history has been inconsistent. REVIEW OF SYSTEMS: Negative for nausea, vomiting. Positive for cough. I could not obtain very reliable history, though he was following intermittent commands. OBJECTIVE: VITAL SIGNS: Temperature of 97.2 degrees, pulse 85, respiratory rate 15, blood pressure 104/67. He is saturating 99%. I turned his oxygen down to 4 L and he was still saturating 94%. PHYSICAL EXAMINATION: General: Morbidly obese, appears tachypneic and in mild distress. HEENT: Pupils are bilateral dilated, reacting to light. Oral cavity is dry. Lungs: Poor respiratory effort, but otherwise air entry appears bilaterally equal. No wheeze or rhonchi. Examination is limited. He has anasarca. Heart: S1, S2 is normal, regular. No murmur or gallop. Abdomen: Obese. There are multiple folds of abdomen with cellulitis on the lower abdominal wall with oozing and macerated skin. Extremities: He has bilateral lower extremity edema. Monk catheter. Neurologic: He is alert. He could tell me his name, date. He was able to raise both upper extremity above ground levels and wiggle toes in both lower extremities. LABORATORY: Suggestive of WBC of 4000, hemoglobin 10.2, platelet 173,000. He does have oxygen of 94% on nasal cannula. His BUN is 88, creatinine is 1.9, the baseline function is not known. MICROBIOLOGY: No positive data except abdominal wound, which was growing Escherichia coli. IMAGING: Chest x-ray suggests improvement from prior. ASSESSMENT AND PLAN: 1. Acute hypoxic respiratory failure due to likely obesity hypoventilation syndrome and acute congestive heart failure and moderate to severe pulmonary hypertension. Continue oxygen through nasal cannula, inhaled bronchodilators, and wean down oxygen as tolerated with goal of oxygen saturation more than 94%. Mr. Trevino denies known history of chronic obstructive pulmonary disease or chronic hypoxic respiratory failure, though the history has been inconsistent and unreliable. 2. Septic shock due to abdominal wall cellulitis due to Escherichia coli. Continue intravenous antibiotics and I will change him to intravenous cefazolin from linezolid and meropenem. He has not been requiring intravenous norepinephrine. I will keep goal MAP more than 65 mmHg. 3. Acute kidney injury with unknown baseline kidney function likely in the setting of septic shock, acute rhabdomyolysis, other etiologies. His creatinine has been improving. I will stop intravenous fluids to manage his tenuous respiratory status. Appreciate Nephrology recommendations. 4. Acute urinary retention: Urology team placed Monk under cystoscopic exam. 4. 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 The patient denies alcohol use, known history of cirrhosis. He denies using any blood thinners at home and I do not have proper history of his home medications. He refused to undergo bilateral lower extremity ultrasounds. I will continue therapeutic anticoagulation dose. 5. Others. Continue laxative therapy for constipation; follow up hepatitis panel for his transaminitis; continue Protonix for gastrointestinal prophylaxis; sliding scale insulin for probable history of diabetes. DISPOSITION: Continue to monitor patient in ICU considering his tenuous respiratory status, tachypnea, risk of aspiration, and Pickwickian syndrome. CRITICAL CARE TIME: 35 minutes of critical care time was spent taking care of this patient. Plan of care was discussed with him. His questions have been answered. cc: Héctor Sue MD [facility]
[2019-06-02] MEDS: CULTURELLE PO SCH ×2 (09:30→20:30)
[2019-06-02] MEDS: BAZA ANTIFUNGAL CREAM TOP SCH ×2 (09:30→20:31)
[2019-06-02] MEDS: LOVENOX SUBQ SCH (09:30)
[2019-06-02] MEDS: MIRALAX PO SCH ×2 (09:31→20:30)
--- NOTE | 2019-06-02 10:52 | NEPHROLOGY PROGRESS NOTE ---
DATE: 06/02/2019 SUBJECTIVE: He is talking more today. He referred to me as "superman." He does not express any specific complaints. No shortness of breath, nausea or vomiting. OBJECTIVE: Vital Signs: Blood pressure 108/95, heart rate 95, respirations 16. Intake 2.6 liters, output 1.1 liters. General: No acute distress. Chronically ill, obese. Skin: Warm and dry. His rash is covered with cream and powder. HEENT: Pupils are equal. Neck: The neck veins are not appreciated. Heart: Regular. Lungs: Equal, shallow, no crackles. Abdomen: Obese soft, nontender. Bowel sounds present. Extremities: There is 2+ edema. No clubbing or cyanosis. IMPRESSION AND PLAN: Acute kidney injury. His creatinine is modestly improved at 1.9 today. Urine output is acceptable, but he remains in positive fluid balance. Intake of 2.6 liters, which I think is acceptable. I will add albumin today and see if this helps him in terms of mobilizing his fluid that is currently interstitial. cc: Vaibhav Judd MD
[2019-06-02 12:43] LABS: HEPATITIS PROFILE ACUTE SEE COMMENTS
[2019-06-02] MEDS: ALBUMIN 25% IV SCH (12:58)
--- NOTE | 2019-06-02 13:18 | CARDIOLOGY PROGRESS NOTE ---
DATE: 06/02/2019 SUBJECTIVE: Mr. Trevino has no complaints today. He seems somewhat confused. He has no breathing difficulties. OBJECTIVE: Vital Signs: Afebrile. Heart rate 84. His blood pressures have been anywhere from the 80s to low 100 systolic. His I's and O's are positive over the course of the hospitalization. A total of 4.1 L. General: No acute distress. Cardiovascular: He sounds to be in a regular rate and rhythm. I do not hear any obvious murmurs. He has very distant heart sounds. He has marked bilateral lower extremity edema with warm and well perfused extremities. Respiratory: Chest exam sounds relatively clear but he has a very poor inspiratory effort. Gastrointestinal: His abdomen is soft, nontender. PERTINENT DATA: White count 4, hematocrit 32, platelet count 173,000. His sodium is 137, potassium 4.4, BUN 88, creatinine is 1.9 which is improved from 2.5 yesterday. ASSESSMENT: Mr. Trevino is a 63-year-old gentleman who presented with sepsis likely secondary to skin infections. PLAN: His renal function has slightly improved. He had a normal ejection fraction yesterday and findings that were most suggestive of right heart failure likely due to sleep apnea, obesity, and hypoventilation. At this point, I will sign off. I do not have any acute recommendations. cc: Virgilio Ríos MD
[2019-06-02] MEDS: DULCOLAX PR SCH (20:30)
[2019-06-03] MEDS: KEFZOL 1 GM/D5W 1 GM/50 ML IVPB IV SCH ×3 (00:51→16:29)
[2019-06-03 05:08] LABS: ALLEN TEST YES; BE -0.1 mmoll (-3.0-3.0); BLOOD TYPE ARTERIAL; HCO3-(ACT) 24.8 mmoll (20.0-26.0); METHB 1.2 % (0.0-1.5); O2(CT) 16.8 mL/dL (15.0-23.0); O2HB 96.8 % (95.0-99.0); PCO2(98.6) 47 mmHg (35-45); PO2(98.6) 199 mmHg (60-100); SAMPLE BLOOD; SAO2 99.2 % (95.0-100.0); pH(98.6) 7.35 (7.35-7.45)
[2019-06-03 05:10] LABS: MODALITY VENTIMASK
[2019-06-03 06:39] LABS: EOS# 0.08 X1000 (0.0-0.7); EOS% 2.3 % (0.0-10.0); HEMATOCRIT 34.8 % (42.0-52.0); HEMOGLOBIN 10.6 g/dL (14.0-18.0); IMM GRAN# 0.02 X1000 (0.0-0.04); IMM GRAN% 0.6 % (0.0-0.5); LYMPH# 0.62 X1000 (1.2-3.4); LYMPH% 17.7 % (20.5-51.1); MCH 26.9 PG (27-31); MCHC 30.5 g/dL (33-37); MCV 88.3 FL (81-99); MONO% 8.6 % (1.7-9.3); MPV 11.1 FL (7.4-10.4); NEUT# 2.48 X1000 (1.4-6.5); NEUT% 70.8 % (42.2-75.2); PLT 163 X1000 (130-400); RBC 3.94 XMIL (4.7-6.1); RDW 16.9 % (11.5-14.5)
[2019-06-03] MEDS: HUMULIN R SUBQ SCH ×3 (06:52→16:28)
--- NOTE | 2019-06-03 07:05 | Diag Imaging Result Doc PS360 ---
EXAM: CHEST-PORTABLE 06/03/2019 HISTORY: dyspnea TECHNIQUE: AP portable at 0546 COMMENT: There is cardiomegaly and increased pulmonary vascularity. There is slightly increased interstitial opacities in the lung bases compared to 06/02/2019. IMPRESSION: Cardiomegaly and worsened interstitial pulmonary edema. Electronically signed by Jose Vanegas 06/03/2019 7:03 AM
[2019-06-03 07:29] LABS: ALBUMIN 2.5 g/dL (3.5-5.0); CALCIUM 7.8 mg/dL (8.8-10.2); CREATININE 1.5 mg/dL (0.7-1.2); POTASSIUM 4.8 mmol/L (3.5-5.1)
[2019-06-03] MEDS: DUONEB (A & A) INH SCH ×6 (07:53→23:48)
[2019-06-03] MEDS: PROTONIX IV SCH (07:56)
[2019-06-03] MEDS: SODIUM CHLORIDE 0.9% INJ SCH (07:57)
[2019-06-03] MEDS: LOVENOX SUBQ SCH (08:01)
[2019-06-03] MEDS: CULTURELLE PO SCH ×2 (08:01→20:16)
[2019-06-03] MEDS: ALBUMIN 25% IV SCH (08:01)
[2019-06-03] MEDS: BAZA ANTIFUNGAL CREAM TOP SCH (08:01)
[2019-06-03] MEDS: MIRALAX PO SCH ×2 (08:02→21:45)
--- NOTE | 2019-06-03 08:41 | PROGRESS NOTE ---
DATE: 06/03/2019 INTERVAL HISTORY: No acute events overnight. Mr. Trevino was started on intravenous albumin. He has been saturating well. He has been hypotensive intermittently. SUBJECTIVE: He denies any chest pain. He is feeling okay. He is feeling a little short of breath. He appears to lapse into sleep during encounter and has trouble speaking. VITALS: Currently, temperature of 97 degrees, pulse 84, respiratory rate 16, blood pressure 91/64, saturating 99% on Venturi mask. PHYSICAL EXAMINATION: Morbidly obese. Oral cavity is dry. Lungs: Air entry bilaterally equal. No wheeze or rhonchi. He has crackles in the infraaxillary region, though respiratory effort is poor. S1, S2 normal. Regular. No murmur, rub, or gallop. Abdomen is obese, soft. There is cellulitis of the abdominal wall with oozing and macerated skin in the lower part of the abdomen. He has bilateral lower extremity edema. Monk catheter. He is alert. He could tell me his name, date, and was able to raise both upper extremities above ground level. He was also able to wiggle his toes in bilateral lower extremities. LABS: Suggestive of WBC 3.5, likely because of linezolid use which has been stopped. Hemoglobin 10.6 platelets 163,000. His BUN is 73, creatinine 1.5. MICROBIOLOGY: No new data. IMAGING: Chest x-ray suggests worsened interstitial pulmonary edema. ASSESSMENT AND PLAN: 1. Acute hypoxic respiratory failure due to obesity hypoventilation syndrome and acute right- sided congestive heart failure with moderate to severe pulmonary hypertension. Continue oxygen through nasal cannula and Venturi mask as tolerated, inhaled bronchodilators with goal oxygen saturation more than 94%. His prior history has been inconsistent. 2. Septic shock due to abdominal wall cellulitis due to Escherichia coli. Continue intravenous antibiotics, intravenous cefazolin. He has been off pressors for almost 24 hours but remains hypotensive. 3. Anasarca, likely because of right-sided congestive heart failure in the setting of his obesity hypoventilation and sleep apnea syndromes. Continue intravenous albumin. I will give him oral Lasix as tolerated. I discussed with the nurse about hooking his Monk catheter with a sterile bag. 4. Acute kidney injury, likely in the setting of septic shock, acute rhabdomyolysis. His creatinine has been improving. I will continue to monitor BMP. Appreciate nephrology's recommendations. 5. Acute urinary retention, status post cystoscopic guided Monk catheter placement by urology team. 6. 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 He was not taking any medications at home. I will follow up ultrasound of lower extremities to rule out deep venous thrombosis. Based on that, I will consider making a change in his enoxaparin dose. 7. Others. Continue laxative therapy for constipation; his hepatitis panel for transaminitis is negative, continue Protonix for gastrointestinal prophylaxis and sliding scale insulin for prediabetes. 8. Disposition. Continue to monitor patient in the intensive care unit for his tenuous respiratory and blood pressure status. In the future, I may consider transferring him to [facility]. Plan of care discussed with him. His questions have been answered. cc: Héctor Sue MD
--- NOTE | 2019-06-03 12:24 | NEPHROLOGY PROGRESS NOTE ---
DATE: 06/03/2019 SUBJECTIVE: He is awake, arousable. Looks at me and mumbles but I could not understand his words. OBJECTIVE: Vital Signs: Blood pressure 83/55, heart rate 86, respirations 18. Intake is 700 mL. Output 1500 mL. General: Obese male, lying in flat in bed on his right side. No acute distress. Neck: Neck veins are not appreciated. Heart: Regular, distant. Lungs: Shallow. A few breath sounds are heard but no crackles. Abdomen: Obese, soft. Bowel sounds are present. Extremities: With 2+ edema. Rash is unchanged. IMPRESSION: Acute kidney injury. Creatinine is down to 1.5 today. Electrolytes, acid-base are in target. Nothing to add so we will sign off today but if we can be of further assistance, please do not hesitate to call. cc: Vaibhav Judd MD
[2019-06-03] MEDS: DULCOLAX PR SCH (21:44)
[2019-06-04] MEDS: BAZA ANTIFUNGAL CREAM TOP SCH ×3 (00:01→20:37)
[2019-06-04] MEDS: KEFZOL 1 GM/D5W 1 GM/50 ML IVPB IV SCH ×3 (00:01→16:55)
[2019-06-04] MEDS: HUMULIN R SUBQ SCH ×5 (00:02→20:28)
[2019-06-04 06:09] LABS: ALBUMIN 3.1 g/dL (3.5-5.0); CALCIUM 8.8 mg/dL (8.8-10.2); CREATININE 1.3 mg/dL (0.7-1.2); PHOSPHORUS 3.4 mg/dL (2.7-4.5); POTASSIUM 4.6 mmol/L (3.5-5.1)
[2019-06-04] MEDS: PROTONIX IV SCH (06:18)
[2019-06-04] MEDS: SODIUM CHLORIDE 0.9% INJ SCH (06:18)
[2019-06-04] MEDS: DUONEB (A & A) INH SCH ×5 (08:12→23:25)
[2019-06-04 08:31] LABS: INR 1.02; PROTIME 13.5 Seconds (11.0-16.0)
[2019-06-04] MEDS: LOVENOX SUBQ SCH (08:56)
[2019-06-04] MEDS: ALBUMIN 25% IV SCH (08:56)
[2019-06-04] MEDS ORDERED: LASIX IV ONE (09:16)
--- NOTE | 2019-06-04 09:47 | PROGRESS NOTE ---
DATE: 06/04/2019 INTERVAL HISTORY: His vitals were largely stable with systolic blood pressure more than 90 on most occasions, with MAP more than 60 on most occasions. He refused to undergo ultrasound of his legs yesterday, considering it was painful. Also, he had a large abdominal fold protruding over his thighs and it was difficult to displace that abdominal fold. When it was displayed, he started complaining of excruciating pain, so we decided to not get ultrasound done and it was canceled. SUBJECTIVE: Mr. Trevino is intermittently sleepy. He could recognize me and he states he was feeling okay. VITALS: Temperature 97 degrees, pulse 101, respiratory rate 20, blood pressure 94/60, saturating 92% on Venturi mask. REVIEW OF SYSTEMS: Negative for chest pain. Negative for shortness of breath. Negative for cough. PHYSICAL EXAMINATION: Morbidly obese. Does not appear in acute distress. Oral cavity is dry. Lungs: Air entry bilaterally equal. However, examination is limited. I could not appreciate any wheeze or rhonchi. He had crackles in his infrascapular and infraaxillary region. His respiratory effort was poor. Cardiovascular: S1, S2 normal. Regular. No murmur, rub, or gallop. Abdomen: Obese, soft, nontender. He has several abdominal folds and I could see some cellulitis in the abdominal folds with macerated and oozing of skin. He has bilateral lower extremity edema. There is a Monk catheter with some scrotal edema. He also has bilateral upper extremity edema. He was able to raise both upper extremities above ground level. He was able to wiggle his toes in both lower extremities. LABS: Suggestive of INR 1.02, PTT 31.8. A PICC line consult has been placed. ASSESSMENT AND PLAN: 1. Acute hypoxic respiratory failure due to obesity hypoventilation syndrome and acute right- sided congestive heart failure with severe pulmonary hypertension. Continue oxygen through Ventimask as tolerated, inhaled bronchodilators with goal saturation more than 94%. 2. Septic shock due to abdominal wall cellulitis due to Escherichia coli. Blood cultures remained negative. Continue intravenous cefazolin. He has been off pressors. His cortisol level and TSH on presentation were within acceptable range, though TSH was slightly on the lower side. I will continue intravenous albumin for his anasarca and hypotension which is likely because of his congestive heart failure. I will also give him a dose of intravenous Lasix today. 3. Acute kidney injury in the setting of septic shock and acute rhabdomyolysis, now improving. He is volume overloaded so I will give him intravenous Lasix and intravenous albumin. 4. Acute urinary retention, status post cystoscopy-guided Monk catheter placement by urology team. 5. Imaging evidence of acute pancreatitis and probably chronic occlusion of the inferior vena cava with superficial venous dilatation of the chest wall vein. I will continue him on enoxaparin, the dose of which I will decrease at the moment. Once he gets the peripherally inserted central catheter line, my plan will be to eventually change his enoxaparin to Eliquis for a prior history of deep venous thrombosis. 6. Others. Continue MiraLAX and bisacodyl for constipation as needed. 7. Protonix for gastrointestinal prophylaxis and sliding scale insulin for prediabetes. DISPOSITION: I will continue to monitor patient in the intensive care unit for his tenuous respiratory and blood pressure status. I have consulted palliative care. I will appreciate their recommendation. Plan of care discussed with nursing team. Their questions have been answered. ADDENDUM: I discussed his care with his sister in detail. Time spent 35 minutes. cc: MD JAZZ Perry
[2019-06-04] MEDS ORDERED: NS 250 ML ONE (10:04)
[2019-06-04] MEDS: MIRALAX PO SCH ×2 (12:02→20:36)
[2019-06-04] MEDS: CULTURELLE PO SCH ×2 (12:02→20:36)
[2019-06-04] MEDS: DULCOLAX PR SCH (20:36)
[2019-06-05] MEDS: KEFZOL 1 GM/D5W 1 GM/50 ML IVPB IV SCH ×3 (00:50→16:00)
[2019-06-05 05:08] LABS: ALLEN TEST YES; BE 3.5 mmoll (-3.0-3.0); BLOOD TYPE ARTERIAL; HCO3-(ACT) 27.7 mmoll (20.0-26.0); METHB 0.9 % (0.0-1.5); O2(CT) 14.9 mL/dL (15.0-23.0); O2HB 96.8 % (95.0-99.0); PCO2(98.6) 44 mmHg (35-45); PO2(98.6) 193 mmHg (60-100); SAMPLE BLOOD; SAO2 99.5 % (95.0-100.0); THB 10.6 g/dL (11.5-17.4); pH(98.6) 7.42 (7.35-7.45)
[2019-06-05 05:13] LABS: MODALITY VENTIMASK
[2019-06-05] MEDS: HUMULIN R SUBQ SCH ×4 (06:10→22:29)
[2019-06-05 06:20] LABS: BASO# 0.01 X1000 (0.0-0.2); BASO% 0.2 % (0.0-0.8); EOS# 0.11 X1000 (0.0-0.7); EOS% 2.7 % (0.0-10.0); HEMATOCRIT 33.1 % (42.0-52.0); HEMOGLOBIN 9.6 g/dL (14.0-18.0); LYMPH# 0.74 X1000 (1.2-3.4); LYMPH% 18.2 % (20.5-51.1); MONO# 0.31 X1000 (0.11-0.59); MONO% 7.6 % (1.7-9.3); NEUT% 71.3 % (42.2-75.2); PLT 107 X1000 (130-400); RBC 3.56 XMIL (4.7-6.1); RDW 16.4 % (11.5-14.5); WBC 4.07 X1000 (4.8-10.8)
[2019-06-05 06:27] LABS: AGAP 10; BUN 48 mg/dL (8-22); CALCIUM 9.1 mg/dL (8.8-10.2); CHLORIDE 109 mmol/L (98-107); COSMO 310; ESTIMATED GFR > 60; GLUCOSE 114 mg/dL (70-104); MAGNESIUM 2.1 mg/dL (1.5-2.7); POTASSIUM 4.8 mmol/L (3.5-5.1); SODIUM 149 mmol/L (136-145); TCO2 30 mmol/L (25-35)
[2019-06-05] MEDS: PRILOSEC PO SCH (08:00)
[2019-06-05] MEDS: MIRALAX PO SCH ×2 (08:25→22:22)
[2019-06-05] MEDS: CULTURELLE PO SCH ×2 (08:26→22:23)
[2019-06-05] MEDS: LASIX PO SCH (08:27)
[2019-06-05] MEDS: ELIQUIS PO SCH ×2 (08:27→22:23)
--- NOTE | 2019-06-05 08:37 | PROGRESS NOTE ---
DATE: 06/05/2019 INTERVAL HISTORY: No acute events overnight. Mr. Trevino continues to have normotension to slightly hypotension. His swallow evaluation unfortunately was not performed yesterday. Otherwise, his vitals were stable. He has hyponatremia, hyperchloremia. His acute kidney injury has resolved. SUBJECTIVE: He denies chest pain, shortness of breath. He denies cough. We discussed about possible group home. He is in agreement with the plan. VITALS: Temperature 98.1 degrees, pulse 87, respiratory rate 16, blood pressure 99/66, saturating 93% on Venturi mask. PHYSICAL EXAMINATION: General: Morbidly obese. Not in acute distress. Oral cavity: Dry. Lungs: Air entry is bilaterally equal. No wheeze, rhonchi or crackles on limited exam. Cardiovascular: S1, S2 normal. Regular. No murmur, rub, or gallop. Abdomen: Obese, soft, nontender. He has abdominal fold and the skin underneath is macerated with what looked like nystatin powder on it. It has cellulitis which seems to be improving from my previous examination. There is a Monk catheter. Scrotal edema. Extremities: Bilateral lower extremity edema. Left arm PICC line. Neurologic: He is alert and he does have some difficulty speaking, though he is able to answer questions and follow commands. LABS: WBC 4.0, hemoglobin 9.6, platelet 107. His PO2 is 193. Sodium is 149, chloride 109, BUN is 48, creatinine 1. MICROBIOLOGY: No new data. X-RAYS: No new imaging. ASSESSMENT AND PLAN: 1. Acute hypoxic respiratory failure due to obesity hypoventilation syndrome and acute right- sided congestive heart failure with severe pulmonary hypertension. Continue oxygen through Ventimask and nasal cannula as tolerated with goal saturation around 94%. 2. Septic shock due to abdominal wall cellulitis due to Escherichia coli. Blood cultures remain negative. Continue intravenous cefazolin. He has been off pressors, and his cortisol and thyroid stimulating hormone were normal. 3. Anasarca with hypotension due to right heart failure and poor nutritional status with low albumin. I will give him intravenous albumin as needed, and start him on oral Lasix. 4. Acute kidney injury in the setting of septic shock and acute rhabdomyolysis, now improved. He is status post cystoscopy- guided Monk catheter placement for urinary retention. 5. Prior history of deep vein thrombosis status post inferior vena cava filter. He developed thrombocytopenia, so I am holding high-dose anticoagulation at the moment. I will start him on low-dose Eliquis at a prophylactic dose. 6. Others. His pancreatitis on presentation is resolved. He does not complain of abdominal pain. He could not get ultrasound of lower extremities because of his excruciating pain, and we could not do it on 2 occasions. I will continue him on MiraLAX and bisacodyl as needed for constipation and omeprazole for stress ulcer prophylaxis, as well as sliding scale insulin for prediabetes. DISPOSITION: I will transfer patient to [facility]. I had a detailed discussion about his care with his sister yesterday. We discussed about his morbid obesity, hypoxic respiratory failure, his multiple comorbidities including poor nutritional status, kidney failure, cellulitis and poor functional status. I asked her about the code status, and she mentioned that she was not in a state of making that decision, and she also provided me the patient's nephew's number, who patient lives with him, who I will reach out to later today. I will transfer patient to [facility]. cc: Héctor Sue MD
[2019-06-05] MEDS: DUONEB (A & A) INH SCH ×4 (08:39→23:14)
[2019-06-05] MEDS ORDERED: LOVENOX SUBQ SCH (09:00)
[2019-06-05] MEDS: BAZA ANTIFUNGAL CREAM TOP SCH ×2 (10:00→22:24)
[2019-06-05] MEDS: DULCOLAX PR SCH (22:22)
[2019-06-06] MEDS: KEFZOL 1 GM/D5W 1 GM/50 ML IVPB IV SCH ×3 (00:24→16:30)
[2019-06-06 05:16] LABS: AGAP 10; BUN 41 mg/dL (8-22); CALCIUM 8.9 mg/dL (8.8-10.2); CHLORIDE 109 mmol/L (98-107); COSMO 306; CREATININE 0.9 mg/dL (0.7-1.2); ESTIMATED GFR > 60; GLUCOSE 119 mg/dL (70-104); POTASSIUM 4.6 mmol/L (3.5-5.1); SODIUM 148 mmol/L (136-145); TCO2 29 mmol/L (25-35)
[2019-06-06] MEDS: PRILOSEC PO SCH (06:14)
[2019-06-06] MEDS: HUMULIN R SUBQ SCH ×4 (06:14→22:01)
[2019-06-06] MEDS: DUONEB (A & A) INH SCH ×6 (08:22→23:53)
[2019-06-06] MEDS: LASIX PO SCH (08:58)
[2019-06-06] MEDS: ELIQUIS PO SCH ×2 (08:58→22:01)
[2019-06-06] MEDS: CULTURELLE PO SCH ×2 (08:58→22:01)
[2019-06-06] MEDS: MIRALAX PO SCH ×2 (08:58→22:01)
[2019-06-06] MEDS: BAZA ANTIFUNGAL CREAM TOP SCH ×2 (08:59→22:02)
--- NOTE | 2019-06-06 10:29 | PROGRESS NOTE ---
DATE: 06/06/2019 INTERVAL HISTORY: Mr. Trevino was transferred out of ICU to a step-down unit yesterday. His blood pressure remained within acceptable range. He does have hypernatremia hyperchloremia, which are stable, but kidney function continues to improve. SUBJECTIVE: Mr. Trevino is feeling the same as before. Denies any chest pain, shortness of breath at rest. He states he has been able to eat better now. We discussed about his clinical condition, morbid obesity, obesity-related problems with breathing and poor nutritional status, as well as poor functional status, and answered all of his questions. REVIEW OF SYSTEMS: Negative for nausea. Negative for vomiting. Negative for abdominal pain at rest. VITALS: Temperature 98.1 degrees, pulse 90, respiratory rate 16, blood pressure 83/37. He is saturating 99% on Venturi mask. PHYSICAL EXAMINATION: General: Morbidly obese. Not in acute distress. Mouth: Oral cavity is moist. Lungs: Air entry bilaterally equal. No wheeze or rhonchi. Mild crackles in infra axillary region. Cardiovascular: S1, S2 normal. Regular. No murmur or gallop. Abdomen: Obese, soft, nontender. He has a large abdominal fold. The skin underneath appears macerated and has chronically lichenified cellulitis which is improving. He has a Monk catheter. Extremities: He has bilateral lower extremity edema. Left arm PICC line. Neurologic: He is alert and oriented x3. He was able to raise both upper extremities above ground level and wiggle his toes, lower extremities. LABS: No CBC today. BMP suggestive of sodium of 148, chloride 109, BUN 41, creatinine 0.9. MICROBIOLOGY: No new data. IMAGING: No new chest x-ray. ASSESSMENT AND PLAN: 1. Acute hypoxic respiratory failure due to obesity hypoventilation syndrome and acute right- sided congestive heart failure with severe pulmonary hypertension. He likely has sleep apnea. Continue oxygen through Ventimask with goal saturation around 94%. 2. Abdominal wall cellulitis due to Escherichia coli. Continue intravenous cefazolin. 3. Anasarca with hypotension due to right heart failure and poor nutritional status with low albumin. I will give him intravenous albumin as needed, and start him on oral Lasix. I will give him intravenous Lasix trial as needed. 4. Acute kidney injury in the setting of septic shock and acute rhabdomyolysis, now improved. Continue Monk catheter for close input and output monitoring, which was placed by Urology under cystoscopy guidance. 5. Prior history of deep vein thrombosis, status post inferior vena cava filter and now chronically occluded inferior vena cava on the CT scan. The patient was not taking any medications at home. Continue prophylactic dose of Eliquis. 6. Others. His pancreatitis, septic shock, rhabdomyolysis have improved. I will keep him on a bowel regimen to avoid constipation, and I will continue him on regular diet with aspiration precautions as per swallow evaluation. He is on omeprazole for stress ulcer prophylaxis and sliding scale insulin for pre diabetes. DISPOSITION: Continue to monitor patient in progressive care unit. I will consult Physical Therapy. Computer T[employer] Libr[employer] have also been consulted for possible transfer to rehab and possibly continuation offered at [facility] facility. I tried to reach out to his nephew, though I was not able to get in touch with him since his number was nonfunctional. I will try to get better contact information. Plan of care discussed with Mr. Trevino. His questions have been answered satisfactorily. ADDENDUM : I called his Nephew. However, I was not able to reach out to him. Palliative care team had a discussion with him about code status. He is DNR level 2. cc: Héctor Sue MD MTDD
[2019-06-06] MEDS: LASIX IV SCH (16:30)
[2019-06-06] MEDS: DULCOLAX PR SCH (22:02)
[2019-06-07] MEDS: KEFZOL 1 GM/D5W 1 GM/50 ML IVPB IV SCH ×4 (00:48→23:38)
[2019-06-07] MEDS: HUMULIN R SUBQ SCH ×4 (06:09→21:06)
[2019-06-07] MEDS: PRILOSEC PO SCH (06:10)
[2019-06-07 07:29] LABS: BASO# 0.04 X1000 (0.0-0.2); BASO% 1.2 % (0.0-0.8); EOS# 0.17 X1000 (0.0-0.7); EOS% 4.9 % (0.0-10.0); HEMATOCRIT 34.4 % (42.0-52.0); HEMOGLOBIN 9.8 g/dL (14.0-18.0); IMM GRAN# 0.02 X1000 (0.0-0.04); IMM GRAN% 0.6 % (0.0-0.5); LYMPH# 0.83 X1000 (1.2-3.4); MCH 26.9 PG (27-31); MCHC 28.5 g/dL (33-37); MCV 94.5 FL (81-99); MONO# 0.32 X1000 (0.11-0.59); MONO% 9.2 % (1.7-9.3); MPV 10.5 FL (7.4-10.4); NEUT# 2.08 X1000 (1.4-6.5); NEUT% 60.1 % (42.2-75.2); PLT 91 X1000 (130-400); RBC 3.64 XMIL (4.7-6.1); RDW 15.9 % (11.5-14.5); WBC 3.46 X1000 (4.8-10.8)
[2019-06-07 07:48] LABS: AGAP 11; BUN 39 mg/dL (8-22); CALCIUM 8.3 mg/dL (8.8-10.2); CHLORIDE 108 mmol/L (98-107); COSMO 307; ESTIMATED GFR > 60; GLUCOSE 120 mg/dL (70-104); MAGNESIUM 1.7 mg/dL (1.5-2.7); POTASSIUM 4.9 mmol/L (3.5-5.1); SODIUM 149 mmol/L (136-145); TCO2 30 mmol/L (25-35)
[2019-06-07 07:56] LABS: ALB/GLOB RATIO 1.5; ALBUMIN 3.4 g/dL (3.5-5.0); DIRECT BILIRUBIN 0.1 mg/dL (0.00-0.20); TOTAL BILIRUBIN 0.35 mg/dL (0.20-1.00); TOTAL PROTEIN 5.7 g/dL (6.3-8.3)
[2019-06-07] MEDS: DUONEB (A & A) INH SCH ×5 (08:00→22:30)
[2019-06-07] MEDS: MIRALAX PO SCH ×2 (08:27→21:54)
[2019-06-07] MEDS: CULTURELLE PO SCH ×2 (08:28→21:53)
[2019-06-07] MEDS: VITAMIN D PO SCH (08:28)
[2019-06-07] MEDS: LASIX PO SCH (08:28)
[2019-06-07] MEDS: ELIQUIS PO SCH ×2 (08:28→21:53)
[2019-06-07] MEDS: BAZA ANTIFUNGAL CREAM TOP SCH ×2 (08:28→21:54)
--- NOTE | 2019-06-07 09:43 | PROGRESS NOTE ---
DATE: 06/07/2019 INTERVAL HISTORY: No acute events overnight. He was saturating well on nasal cannula. He was - 900 mL yesterday. He did have intermittent hypotension, though he was not symptomatic. He continues to have mild thrombocytopenia without any overt bleeding. SUBJECTIVE: Mr. Trevino is feeling fair. Denies any chest pain, shortness of breath. Denies any cough. He denies nausea, vomiting, abdominal pain as such; however, he does complain of some pain while moving in the bed. He says that at home, he was using a walker. Physical Therapy evaluation has been ordered. He has a urine catheter. OBJECTIVE: Vital Signs: Temperature 97 degrees, pulse 90, respiratory rate 16, blood pressure 105/85, saturating 100% on 2 L nasal cannula. General: Morbidly obese. No distress. HEENT: Oral cavity is dry. Lungs: Air entry bilaterally equal. No wheeze, rhonchi. Mild crackles in infra-axillary region. Heart: S1, S2 normal. Regular. No murmur or gallop. Abdomen: Obese, soft, nontender. Large abdominal fold. The skin underneath appears macerated and has chronically lichenified, cellulitis. : He has a Monk catheter. Extremities: He has bilateral lower extremity edema. His left arm has a dressing. He had ripped out his PICC line. Neurologic: He is alert and oriented x3. He is able to raise both upper extremities above ground level. Input and output positive 700 mL so far today. LABORATORY DATA: WBC 3.4, hemoglobin 9.8, platelets 91,000. Sodium 149, chloride 108, BUN 39, creatinine 1. His albumin is 3.4. MICROBIOLOGY/IMAGING: No new microbiological or imaging data. ASSESSMENT AND PLAN: 1. Acute hypoxic respiratory failure due to suspected obesity hypoventilation syndrome and acute right-sided congestive heart failure with severe pulmonary hypertension. He could also have a component of sleep apnea, and he would need outpatient evaluation. Continue oxygen through nasal cannula to maintain saturation more than 94%. 2. Abdominal wall cellulitis due to Escherichia coli. Continue intravenous cefazolin. My plan is to continue to treat him with intravenous cefazolin, and I will consider changing it to oral Keflex at the time of discharge. 3. Anasarca and hypotension due to right heart failure, poor nutritional status with hypoalbuminemia. I will continue oral and intravenous Lasix with holding parameters, and intravenous albumin as needed. 4. Acute kidney injury in the setting of septic shock. Acute rhabdomyolysis, septic shock have resolved. 5. Urinary incontinence. His urine incontinence was likely responsible for Escherichia coli causing cellulitis. Cystoscopic-guided Monk catheter was placed by Urology. He would need Monk catheter changed every 4 weeks over wire either at rehab or he would have to see a urologist in the offices for a Monk catheter change every 4 weeks as per my discussion with urologist. 6. History of deep venous thrombosis, status post inferior vena cava filter and chronically occluded inferior vena cava filter. I will keep him on Eliquis, prophylactic dose, and follow up platelet counts. 7. Others. His pancreatitis on presentation has resolved. He does not have abdominal tenderness. He is tolerating diet well. Continue bowel regimen to avoid constipation, aspiration precautions, omeprazole for stress ulcer prophylaxis, and sliding scale insulin for prediabetes. 8. Disposition. Social Service rehab consult has been placed. Physical Therapy evaluation has been ordered. Plan of care was discussed with Mr. Trevino. He was allowed to ask questions. His questions have been answered. cc: Héctor Sue MD
[2019-06-07] MEDS: LASIX IV SCH (16:35)
[2019-06-07] MEDS: DULCOLAX PR SCH (21:54)
[2019-06-08] MEDS: HUMULIN R SUBQ SCH ×4 (06:40→21:25)
[2019-06-08] MEDS: PRILOSEC PO SCH (06:53)
[2019-06-08] MEDS ORDERED: ALBUMIN 25% IV ONE (07:20)
[2019-06-08] MEDS: DUONEB (A & A) INH SCH ×5 (07:59→23:17)
[2019-06-08] MEDS: KEFZOL 1 GM/D5W 1 GM/50 ML IVPB IV SCH ×2 (08:26→16:42)
[2019-06-08] MEDS: CULTURELLE PO SCH ×2 (08:26→21:24)
[2019-06-08] MEDS: LASIX PO SCH (08:26)
[2019-06-08] MEDS: BAZA ANTIFUNGAL CREAM TOP SCH ×2 (08:40→21:24)
[2019-06-08] MEDS: MIRALAX PO SCH ×2 (08:40→21:24)
--- NOTE | 2019-06-08 12:50 | PROGRESS NOTE ---
DATE: 06/08/2019 INTERVAL HISTORY: No acute events overnight. His Eliquis has been held as he may need a PICC line. He is getting intravenous albumin. I am awaiting [facility]' recommendation regarding if he would need COVID 19 testing before going to rehab. SUBJECTIVE: Mr. Trevino denies any new complaints. He denies chest pain. He denies shortness of breath. His cough is not unusual. He is eating okay currently. OBJECTIVE: Vital Signs: Temperature 98.6 degrees, pulse 91, respiratory rate 17, and blood pressure 98/46. He is saturating 100% 2 L nasal cannula. General: He is morbidly obese not in acute distress. Oral cavity is moist. Lungs: Air entry bilaterally equal. No wheeze or rhonchi. Mild crackles in infra-axillary region. Heart: S1, S2 normal. Regular. No murmur or gallop. Abdomen: Obese, soft. Nontender. Large abdominal fold with lichenified macerated infected skin with cellulitis. He has a Monk catheter. Extremities: He has bilateral lower extremity edema. He is alert and oriented x3. He is able to move both upper extremities above ground level. He is able to wiggle his toes. He was -700 mL yesterday. MICROBIOLOGY: No new data. No new imaging. ASSESSMENT AND PLAN: 1. Acute hypoxic respiratory failure due to obesity, hypoventilation syndrome, and acute right- sided congestive heart failure with severe pulmonary hypertension. He could also have a component of sleep apnea, and he would need outpatient evaluation. Continue oxygen per nasal cannula with saturation more than 94%. Continue inhaled nebulization for bronchial hygiene. 2. Abdominal wall cellulitis due to Escherichia coli. Continue intravenous cefazolin while he is inside the hospital, and my plan is to change him to oral Keflex at the time of discharge. 3. Anasarca and hypotension due to right heart failure and poor nutritional status with hypoalbuminemia. I will give him intravenous albumin, and continue him on oral intravenous Lasix as his blood pressure tolerates. 4. Urinary incontinence. He required Monk catheter placement under anesthesia under cystoscopic guidance by Urology. His urine was likely infecting his abdominal skin. In the future, he would need change of Monk catheter every month over wire at rehab, or he would have to see Dr. Rajan in his office for change in urine catheter over wire as per my discussion with the urologist. (Please see the addendum) 5. Acute kidney injury, septic shock, acute rhabdomyolysis, acute pancreatitis on presentation have resolved. I will continue omeprazole for stress ulcer prophylaxis, and bowel regimen to avoid constipation, which I am holding since he is having diarrhea. After curbside discussion with physician credentialing specialist, I have kept him on prophylactic dose of apixaban for his chronically occluded inferior vena cava filter. Currently, I am holding his apixaban as he may need re-insertion of PICC line for IV access. I will follow up with platelet count tomorrow. There are no signs of overt bleeding. Noticeably, he had history of a DVT about 10 to 15 years ago when he had required an IVC filter, and has not been taking any medications since last 10 to 15 years. DISPOSITION: [facility] are working on finding a rehab. Once they update me, I will order coronal virus testing if the rehab requires. Plan of care discussed with the patient. He was allowed to ask questions. All of his questions were answered. The day before yesterday, I was not able to reach out to his nephew to update him. I had talked with his sister and had discussed with her about plan of care, and had answered all of her questions. ADDENDUM: I got a call from the urologist. I was informed that the patient might benefit from suprapubic catheter placement due to his body habitus and the difficulty they had putting a Monk through cystoscope. The urologist would plan on discussing this with the patient today evening. I will discontinue Eliquis and put him on Lovenox. Time spent in his care: 35 minutes. cc: Héctor Sue MD MTDMya
--- NOTE | 2019-06-08 14:49 | EKG Report ---
Test Performed on : 06/08/2019 2:31:26 PM Test Reason : Confirm heart rhythm Blood Pressure : / mmHG Vent. Rate : 086 BPM Atrial Rate : 086 BPM P-R Int : 162 ms QRS Dur : 098 ms QT Int : 360 ms P-R-T Axes : 051 057 006 degrees QTc Int : 430 ms Normal sinus rhythm. Low voltage QRS Nonspecific T wave abnormality Abnormal ECG When compared with ECG of 31-MAY-2019 17:17, (Unconfirmed) QT has shortened Confirmed by Miguel FRAGA, Omi Barba ([id number]) on 06/08/2019 4:48:55 PM
[2019-06-08] MEDS: LASIX IV SCH (16:42)
[2019-06-08] MEDS: LOVENOX SUBQ SCH (19:29)
[2019-06-08] MEDS: DULCOLAX PR SCH (21:24)
[2019-06-09] MEDS: KEFZOL 1 GM/D5W 1 GM/50 ML IVPB IV SCH ×3 (00:41→16:57)
[2019-06-09] MEDS: HUMULIN R SUBQ SCH ×4 (06:13→20:43)
[2019-06-09] MEDS: PRILOSEC PO SCH (06:13)
[2019-06-09 07:01] LABS: BASO# 0.03 X1000 (0.0-0.2); EOS# 0.15 X1000 (0.0-0.7); HEMATOCRIT 30.1 % (42.0-52.0); HEMOGLOBIN 8.8 g/dL (14.0-18.0); LYMPH# 0.82 X1000 (1.2-3.4); LYMPH% 27.1 % (20.5-51.1); MCH 27.3 PG (27-31); MCHC 29.2 g/dL (33-37); MCV 93.5 FL (81-99); MONO# 0.19 X1000 (0.11-0.59); MONO% 6.3 % (1.7-9.3); MPV 10.7 FL (7.4-10.4); NEUT# 1.84 X1000 (1.4-6.5); NEUT% 60.6 % (42.2-75.2); PLT 166 X1000 (130-400); RBC 3.22 XMIL (4.7-6.1); RDW 15.4 % (11.5-14.5); WBC 3.03 X1000 (4.8-10.8)
[2019-06-09 07:17] LABS: AGAP 8; ALB/GLOB RATIO 0.8; ALBUMIN 2.9 g/dL (3.5-5.0); ALKALINE PHOSPHATASE 66 U/L (32-122); BUN 31 mg/dL (8-22); CALCIUM 8.6 mg/dL (8.8-10.2); CHLORIDE 103 mmol/L (98-107); COSMO 295; CREATININE 0.8 mg/dL (0.7-1.2); ESTIMATED GFR > 60; GLUCOSE 121 mg/dL (70-104); GOT 27 U/L (10-34); GPT < 5 U/L (10-44); MAGNESIUM 1.6 mg/dL (1.5-2.7); POTASSIUM 3.9 mmol/L (3.5-5.1); SODIUM 144 mmol/L (136-145); TCO2 33 mmol/L (25-35); TOTAL BILIRUBIN 0.57 mg/dL (0.20-1.00); TOTAL PROTEIN 6.6 g/dL (6.3-8.3)
[2019-06-09] MEDS: DUONEB (A & A) INH SCH ×5 (07:45→22:37)
[2019-06-09] MEDS: LASIX PO SCH (08:17)
[2019-06-09] MEDS: CULTURELLE PO SCH ×2 (08:17→20:35)
[2019-06-09] MEDS: MIRALAX PO SCH ×2 (08:18→20:34)
[2019-06-09] MEDS: BAZA ANTIFUNGAL CREAM TOP SCH ×2 (08:22→20:38)
--- NOTE | 2019-06-09 13:54 | PROGRESS NOTE ---
DATE: 06/09/2019 SUBJECTIVE: I have seen and examined Mr. Trevino this morning. He refers to be feeling much better. He referred to have no new complaints. No nauseation. When I asked him what was the main reason why he came to the hospital, he said he does not really remember. He is pending a suprapubic catheter placement tomorrow by urology. OBJECTIVE: Vital Signs: Blood pressure is 106/44, pulse of 90, respirations are 18, temperature is 98.2 degrees. General Examination: Mr. Trevino is a 63-year-old, morbidly obese, male with a BMI of 57.7. He is in bed. No distress. HEENT: Mucosa is pink and moist. Anicteric. Acyanotic. Neck: Supple. Chest: Good air entry bilaterally. I did not hear any crepitations. No rhonchi. Cardiovascular: Regular rate and rhythm. No murmurs, no rubs, no gallops. GI: Abdomen is soft, is obese. It is remarkably distended but nontender. There is a large abdominal fold with a pannus on the lower abdomen associated with chronic skin changes. Monk catheter was in place. Extremities: About 1+ pedal edema. LAP LAYER: The patient is awake, alert, and oriented. Is and Os: Urine output was 3000 over the course of the last 24 hours. Still mildly positive balance. Laboratory Data: Has been reviewed. CBC is unremarkable. Platelet count is up to 166,000. Chemistry is unremarkable. The patient continues to be on cefazolin. ASSESSMENT: 1. Altered mental status on presentation secondary to global encephalopathy, improved. 2. Acute kidney injury, presumably from obstructive uropathy, improved. Patient has a Monk catheter. There is a plan for a suprapubic catheter placement tomorrow. 3. Abdominal wall cellulitis with culture positive for Escherichia coli. Patient is on cefazolin. 4. Shock on presentation, resolved. 5. Acute pancreatitis, improved. 6. Morbid obesity, body mass index of 57.7. 7. Acute hypoxemic respiratory failure. 8. Suspected sleep apnea with obesity hypoventilation syndrome. cc: García Diop MD
[2019-06-09] MEDS: LASIX IV SCH (16:57)
[2019-06-09] MEDS: LOVENOX SUBQ SCH (17:04)
[2019-06-09] MEDS: DULCOLAX PR SCH (20:35)
[2019-06-10] MEDS: KEFZOL 1 GM/D5W 1 GM/50 ML IVPB IV SCH ×3 (00:17→16:59)
[2019-06-10] MEDS: PRILOSEC PO SCH (06:41)
[2019-06-10] MEDS: HUMULIN R SUBQ SCH ×4 (06:41→20:50)
[2019-06-10] MEDS: DUONEB (A & A) INH SCH ×5 (07:35→22:40)
[2019-06-10] MEDS: LASIX PO SCH (08:49)
[2019-06-10] MEDS: BAZA ANTIFUNGAL CREAM TOP SCH ×2 (08:49→20:50)
[2019-06-10] MEDS: MIRALAX PO SCH ×2 (08:49→20:50)
[2019-06-10] MEDS: CULTURELLE PO SCH ×2 (08:49→20:49)
[2019-06-10] MEDS ORDERED: XYLOCAINE-MPF 2% ONE (09:03)
[2019-06-10] MEDS ORDERED: ROBINUL ONE (09:04)
[2019-06-10] MEDS ORDERED: DIPRIVAN 1% ONE (09:04)
[2019-06-10] MEDS ORDERED: ZEMURON ONE ×2 (09:28→09:47)
--- NOTE | 2019-06-10 09:31 | Diag Imaging Result Doc PS360 ---
US ABDOMEN-COMPLETE - 06/10/2019 INDICATION: cirrhosis of liver. Pancreatitis COMPARISON: None FINDINGS: Detail is limited due to the patient's large size. There is splenomegaly. The spleen measures 16.9 cm in length. The gallbladder is absent. The liver is normal. The pancreas is obscured. No mass or fluid collections. Both kidneys are normal. Aorta, IVC, and main portal vein are patent. No free fluid. IMPRESSION: Mild splenomegaly. Electronically signed by Adalberto Flores 06/10/2019 9:29 AM
[2019-06-10] MEDS ORDERED: ZOFRAN ONE (09:48)
[2019-06-10] MEDS ORDERED: BRIDION ONE (09:52)
--- NOTE | 2019-06-10 11:52 | PROGRESS NOTE ---
DATE: 06/10/2019 SUBJECTIVE: I have seen and examined Mr. Trevino today. He refers to be doing well. He is waiting for urological intervention. He denies any complaints. OBJECTIVE: Vital Signs: Blood pressure of 92/56, pulse 91, respirations 18, and temperature is 98.1 degrees. Patient was saturating 98%. General: Mr. Trevino is a 63-year-old gentleman. He is morbidly obese. He is in bed. BMI is 57.5. He was not in any distress. HEENT: Mucosa is pink and moist. Anicteric. Acyanotic. Neck: Supple. There is no JVD. Respiratory: Good air entry bilaterally. No crepitations. No rhonchi. Cardiovascular: Regular rate and rhythm. No murmurs, no rubs, no gallops. GI: Abdomen is soft, and diffusely protuberant, but nontender. There is a large abdominal fold with pannus in the lower abdomen associated with chronic skin changes and ulcerations. There is Monk catheter in place. Extremities: 1+ pedal edema. ACCOUNTS PAYABLE SPECIALIST: Patient is awake, alert, and oriented. There is no focal deficit. LABORATORY DATA: So far, laboratory data shows lipase is trending down. TSH is elevated. We will repeat that with free T4. Ultrasound of the abdomen did show mild splenomegaly. ASSESSMENT: 1. Altered mental status on presentation secondary to global encephalopathy improved. 2. Acute kidney injury secondary to obstructive uropathy. Patient has a Monk catheter in place. There is a plan for suprapubic catheter placement because of difficult attempted cystoscopy. 3. Abdominal wall cellulitis with culture positive for E. Coli. Patient is on cefazolin. 4. Shock on presentation, presumed septic. Improved. 5. Acute pancreatitis improved. 6. Morbid obesity. BMI of 57. Weight management advised. 7. Acute hypoxemic respiratory failure. 8. Suspected sleep apnea with obesity and hypoventilation syndrome. 9. Elevated TSH. We will repeat this with free T4 to make sure there is not any underlying hypothyroidism. cc: García Diop MD
[2019-06-10] MEDS: LOVENOX SUBQ SCH (16:59)
[2019-06-10] MEDS: LASIX IV SCH (17:01)
--- NOTE | 2019-06-10 18:25 | OPERATIVE NOTE ---
PROCEDURE DATE: 06/10/2019 SURGEON: Seth Rajan MD PREOPERATIVE DIAGNOSES: 1. Urinary incontinence secondary to immobility with panniculitis and inguinal area cellulitis. 2. Hidden penis. POSTOPERATIVE DIAGNOSES: 1. Urinary incontinence secondary to immobility with panniculitis and inguinal area cellulitis. 2. Hidden penis. PROCEDURE PERFORMED: 1. Cystoscopic exam. 2. Place suprapubic tube under ultrasound guidance. ANESTHESIA: General endotracheal. FINDINGS: The patient is morbidly obese and has a very large pannus that on each side has a resolving cellulitis that goes into the inguinal area with significant skin breakdown. The patient cannot get up to void and uses diapers to manage his bladder. The patient had a Monk catheter placed under cystoscopic exam guidance was going to be sent to a [facility] and needs a more permanent form of bladder drainage. It will be much easier to change a suprapubic tube every 30 days, instead of trying to have him undergo cystoscopic exam for catheter change. DESCRIPTION OF PROCEDURE: After informed consent was obtained from the patient and him receiving IV antibiotics, he was taken to the main OR, and placed in the supine position. General endotracheal anesthesia was achieved. He was then placed in the low lithotomy position using candy-cane stirrups. The patient again had significant cellulitis in each inguinal area, but it is resolving. He had significant skin breakdown in the left buttocks and proximal thigh area and 1 area on the right proximal thigh. Each inguinal area had significant breakdown. The Monk catheter was removed prior to him being prepped and draped. A 21-Cuban sheath cystoscope was passed through the opening in the pannus that was the end of his foreskin and the urethral meatus was able to be visualized and the 21-Cuban sheath cystoscope was passed through the patient's urethra, that had no strictures, the prostate that had mild increased lateral lobes, mildly elevated bladder neck, length of approximately 3.5 to 4 cm. Bladder - normal ureteral orifices bilaterally. Bullous edema on the trigone and lower posterior wall consistent with indwelling Monk catheter. There was grade 1 trabeculations. No diverticula. No papillary lesions. The bladder was then distended and the ultrasound machine was used to image the bladder. The distance between the skin surface and outer bladder wall was 8.5 cm. No bowel was seen lying on top of the bladder. A stab incision was made in the midline just above the pubic bone. This incision was extended to about 0.5 cm in length. The Constance suprapubic tube introducer was pushed through the stab incision and down into the bladder. When the bladder was entered a large amount of the saline returned that had been put in the bladder through the cystoscope. The cystoscope also were visualized the Constance suprapubic tube introducer. The trocar was removed and a 16-Cuban Monk catheter was passed through the sheath and into the bladder. Then, 10 mL of sterile water were placed in the Monk balloon. The sheath was removed. The sheath was completely buried and had to be retrieved by grabbing the tab that is normally used to remove the sheath from the Monk, but the sheath was able to be pulled back at out of the skin and onto the Monk catheter and removed. The Monk catheter was sutured to the skin with 0 silk. The wound was dressed with plain gauze and paper tape. The efflux was clear. He tolerated this procedure well. Estimated blood loss 3 mL. He was taken to the recovery room, extubated in good condition. cc: Seth Rajan MD
[2019-06-10] MEDS: DULCOLAX PR SCH (20:49)
[2019-06-11] MEDS: KEFZOL 1 GM/D5W 1 GM/50 ML IVPB IV SCH ×3 (00:07→16:55)
[2019-06-11] MEDS: ZOFRAN IV PRN (03:29)
[2019-06-11] MEDS: HUMULIN R SUBQ SCH ×3 (06:08→16:55)
[2019-06-11] MEDS: PRILOSEC PO SCH (06:09)
[2019-06-11] MEDS: DUONEB (A & A) INH SCH ×2 (07:34→11:05)
[2019-06-11 08:51] LABS: AGAP 11; ALBUMIN 2.9 g/dL (3.5-5.0); BUN 33 mg/dL (8-22); CALCIUM 8.1 mg/dL (8.8-10.2); CHLORIDE 93 mmol/L (98-107); CHOLESTEROL 116 mg/dL (0-200); COSMO 278; ESTIMATED GFR > 60; GLUCOSE 135 mg/dL (70-104); HDL 27 mg/dL (35-55); LDL 57 mg/dL; PHOSPHORUS 2.5 mg/dL (2.7-4.5); POTASSIUM 3.9 mmol/L (3.5-5.1); SODIUM 134 mmol/L (136-145); TCO2 30 mmol/L (25-35); TRIGLYCERIDES 159 mg/dL (39-160); VLDL 32 mg/dL
[2019-06-11 08:59] LABS: FREE T4 1.03 ng/dL (0.93-1.70)
[2019-06-11 09:01] LABS: TSH 6.39 uIUmL (0.27-4.20)
[2019-06-11] MEDS: MIRALAX PO SCH (09:55)
[2019-06-11] MEDS: LASIX PO SCH (09:56)
[2019-06-11] MEDS: CULTURELLE PO SCH (09:56)
[2019-06-11] MEDS: BAZA ANTIFUNGAL CREAM TOP SCH (09:57)
--- NOTE | 2019-06-11 10:00 | DISCHARGE SUMMARY ---
ADMISSION DATE: 05/30/2019 DISCHARGE DATE: 06/11/2019 I have seen and examined Mr. Trevino today. DISPOSITION: [facility]. FOLLOW-UP: 1. Dr. Virgilio Ríos. 2. Dr. Vaibhav Judd. 3. Dr. Seth Rajan. CONSULTATIONS DURING THIS ADMISSION: 1. Urology was consulted; patient was seen by Dr. Rajan. 2. Nephrology was consulted; patient was seen by Dr. Judd. 3. Cardiology was consulted patient was seen by Dr. Virgilio Ríos. IMAGING STUDIES OF SIGNIFICANCE: 1. A head CT scan without contrast was done which showed no acute process. 2. CT scan of the abdomen and pelvis showed: a) Possible pancreatitis. 3. Patchy infiltrate in the lung base compatible with atelectasis, pulmonary edema or pneumonia. 4. Probably chronic occlusion of the IVC. 5. Scrotal ultrasound was negative. 6. A CT scan of the chest shows severely low lung volumes with bibasilar atelectasis suggesting obesity hypoventilation. 7. A repeat CT scan of the head showed no acute disease. 8. Ultrasound of the abdomen showed mild splenomegaly. INVASIVE PROCEDURES DONE DURING THIS ADMISSION: 1. Cystoscopic exam was attempted with difficult Monk catheterization by Dr. Rajan on 05/30/2019. 2. A suprapubic catheter was put in on 06/10/2019 due to urinary incontinence secondary to immobility with panniculitis and inguinal area cellulitis, hidden penis. ADMISSION DIAGNOSES: 1. Fluid overload. 2. Troponinemia. 3. Acute kidney injury. 4. High anion gap metabolic acidosis. 5. Hypertension. 6. Multiple skin folds with some fungal infection. DIAGNOSES AT THE TIME OF DISCHARGE: 1. Altered mental status on presentation secondary to global encephalopathy, resolved. 2. Acute kidney injury secondary to obstructive uropathy. 3. Urine incontinence, status post suprapubic catheter placement. 4. Abdominal wall panniculitis with skin abrasions. Culture positive for Escherichia coli. 5. Hypotension on presentation, presumably septic shock, resolved. 6. Acute pancreatitis, improved. This is presumed to be alcohol induced. 7. Morbid obesity with body mass index of 57.5. 8. Acute hypoxemic respiratory failure. 9. Suspected sleep apnea with obesity hypoventilation syndrome. 10. Mildly elevated thyroid stimulating hormone with normal free T4, suspicious for underlying subclinical hypothyroidism. Patient advised to follow up with primary care and repeat this test in the next 3 months. 11. Panniculitis with inguinal area and other skin folds regions. 12. Tenia. The patient will continue on miconazole cream. 13. 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 DISCHARGE MEDICATIONS: 1. Keflex 500 mg 3 times per day. 2. Furosemide 20 mg p.o. daily. 3. Omeprazole 40 mg p.o. daily. 4. Vitamin D 5000 every 7 days. 5. Dulcolax 10 mg p.r.n. 6. Lactobacillus. 7. MiraLAX. PRESENTING COMPLAINT: Altered mental status. HISTORY OF PRESENTING COMPLAINT: Mr. Trevino is a 63-year-old male, who presented to the emergency room because apparently was very minimally responsive. There were no family members around. The history was mainly obtained from the ER notes. It was referred per documentation that family members cannot apparently take care of him anymore at home. He continues to be extremely confused, seems to be drinking alcohol, was brought in for evaluation. Upon presentation Mr. Trevino was evaluated. He was found to be hypotensive with a blood pressure going down to about 79/50, and was subsequently admitted for hypotension, possible septic shock. HOSPITAL COURSE: Mr. Trevino was admitted, initially fluid resuscitated, was started on broad- spectrum IV antibiotics. Imaging studies, including a CT scan of the abdomen, were done. Throughout the hospital course, he continues to show improvement. Blood pressure got normalized. His blood cultures came back 5 days negative. However, the cellulitis on the abdominal wall grew E coli. Antibiotics where tailored accordingly. Mr. Trevino was also found to have issues with urination. Initially, his creatinine on admission was 2.3; it went up to 2.5. Cystoscopy with Monk catheterization was initially done. However, because of macerations in the inguinal region, as well as hidden penis, Urology thought it to be reasonable to do a suprapubic catheter to give opportunity for the skin folds to heal appropriately. This was successfully done yesterday and has been draining well. Mr. Trevino refers to be feeling a lot better. Blood pressures have all been normalized. His other parameters are all stable. He was also found to have some mild pancreatitis and chronic obstruction of the IVC. His initial AST was far more elevated than the ALT. We think this is probably all related to chronic alcohol use, so we think the pancreatitis is secondary to alcohol use, and that he probably has a chronic underlying pancreatitis, which is complicated with the chronic IVC obstruction. In any case, he has been advised to follow up with Dr. Rodriguez, the flower pot press operator. Mr. Trevino is going to be discharged to rehab. TIME SPENT FOR DISCHARGE: 38 minutes. cc: García Diop MD
[2019-06-11 15:15] VITALS: BP 114/63
[2019-06-11] MEDS: LASIX IV SCH (16:55)
[2019-06-11] MEDS: LOVENOX SUBQ SCH (17:54)
== END 2019-06-11 17:55 | DRG 871 ==
LOC: EDIPHOLD 06:36 → SUATTDRO 06:36 → ICU 08:20 → 2N 06-05 12:43 → 3N 06-08 12:26
PROVIDERS: ATTEND Internal Medicine